=== PATIENT | male | born 1955 | race Caucasian/White ===

== ENCOUNTER 2019-09-14 18:44 | Emergency (ER) | payer OTHER, SELFPAY ==
[2019-09-14 19:01] VITALS: BP 183/114; PULSE 97; RESP 18; TEMP 36.8; O2SAT 96; BMI 37.5
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
--- NOTE | 2019-09-14 19:19 | CTR_ITS ---
PROCEDURE INFORMATION: Exam: CT Head Without Contrast Exam date and time: 09/14/2019 7:29 PM Age: 64 years old Clinical indication: Pain; Headache not specified; Additional info: Worst headache of his life TECHNIQUE: Imaging protocol: Computed tomography of the head without contrast. Total DLP: 917.26 mGy-cm Radiation optimization: All CT scans at this facility use at least one of these dose optimization techniques: automated exposure control; mA and/or kV adjustment per patient size (includes targeted exams where dose is matched to clinical indication); or iterative reconstruction. COMPARISON: No relevant prior studies available. FINDINGS: Brain: Normal. No hemorrhage. Unremarkable white matter. No mass effect. Ventricles: Normal. No ventriculomegaly. Bones/joints: Unremarkable. No acute fracture. Sinuses: Visualized sinuses are unremarkable. No fluid levels. Mastoid air cells: Visualized mastoid air cells are well aerated. Soft tissues: Unremarkable. CT/CT head wo con* [id number] IMPRESSION: No acute intracranial abnormality. Radiation Dose CTDIVOL = (mGy): DLP = 917.26 (mGy-cm)
[2019-09-14 19:38] LABS: Basophils # 0.1 10^3/uL (0.0-0.1); Basophils % 0.5 %; Eosinophils # 0.5 10^3/uL (0.0-0.8); Eosinophils % 4.4 %; Hematocrit 43.4 % (42.0-52.0); Hemoglobin 14.5 g/dL (11.7-16.6); Lymphocytes # 1.3 10^3/uL (0.8-4.8); Lymphocytes % 12.1 %; Mean Corpuscular HGB Conc 33.4 g/dL (30.0-36.0); Mean Corpuscular Hemoglobin 28.7 pg (28.0-34.0); Mean Corpuscular Volume 85.9 fL (80-94); Mean Platelet Volume 10.6 fL (7.4-10.4); Monocytes # 0.8 10^3/uL (0.2-0.9); Monocytes % 7.3 %; Neutrophils # 7.9 10^3/uL (1.8-7.7); Neutrophils % 75.4 %; Nucleated Red Blood Cells % 0 %; Platelet Count 233 10^3/cmm (130-400); Red Blood Count 5.05 10^6/uL (4.1-5.3); Red Cell Distribution Width 13.5 % (12.1-15.1); White Blood Count 10.5 10^3/uL (4.0-10.0)
[2019-09-14] MEDS: ketorolac 30 mg/mL INJ IVP (19:41)
[2019-09-14] MEDS: diphenhydrAMINE 50 mg/mL SDV 1mL 25 MG IVP (19:41)
[2019-09-14 19:52] LABS: INR 0.97 (0.8-1.2)
[2019-09-14 19:56] LABS: Alanine Aminotransferase 24 U/L (0-41); Albumin Level 4.4 g/dL (3.5-5.2); Alkaline Phosphatase 101 IU/L (40-130); Anion Gap 19.8 (5-19); Aspartate Amino Transferase 17 U/L (0-40); Blood Urea Nitrogen 15 mg/dL (8-23); Calcium 10.1 mg/Dl (8.8-10.2); Carbon Dioxide 28 mmol/L (22-29); Chloride 104 mmol/L (98-107); Globulin 3.3 g/dL (1.3-4.6); Glomerular Filtration Rate 67.8 mL/min (90-130); Glucose 314 mg/dL (74-106); Potassium 3.8 mmol/L (3.5-5.1); Sodium 148 mmol/L (136-145); Total Bilirubin 0.3 mg/dL (0.15-1.2); Total Protein 7.7 g/dL (6.6-8.7)
[2019-09-14 20:29] LABS: Influenza A by IFA Negative (Negative); Influenza B by IFA Negative (Negative)
[2019-09-14] MEDS: magnesium sulfate premix 2 GM/50 ML PIGGYBACK IV (20:31)
[2019-09-14] MEDS: dexamethasone 4 mg/mL INJ IVP (20:32)
[2019-09-14 20:35] VITALS: BP 164/94; PULSE 96; RESP 16; O2SAT 96
[2019-09-14] MEDS: valproic acid inj 500 MG in sodium chloride 0.9% 50 ML 55 MG IV (20:56)
[2019-09-14 20:57] VITALS: RESP 18
[2019-09-14] MEDS: morphine 4 mg/mL SDV 1 mL 10 MG IVP (20:57)
[2019-09-14 21:01] VITALS: BP 135/82; PULSE 96; RESP 18
[2019-09-14 23:30] VITALS: BP 175/98; PULSE 85; RESP 16; O2SAT 93
== END 2019-09-14 23:32 | disposition home or self-care (01) ==
PROVIDERS: Emergency Provider Family Medicine; Family Provider Family Medicine
DX: R51 Headache (principal); Z79.82 Long term (current) use of aspirin; Z79.84 Long term (current) use of oral hypoglycemic drugs
CPT/HCPCS: 70450; 80053; 85025; 85610; 87804; 96365; 96366; 96374; 96375; 99283; J1100; J1200; J1885; J2270; J3475

== ENCOUNTER 2020-06-28 09:00 | Outpatient (CLI) | payer OTHER, SELFPAY ==
--- NOTE | 2020-06-28 09:04 | MR_ITS ---
WS: [id number] MRI LEFT SHOULDER HISTORY: LEFT SHOULDER INJURY;JOINT DERANGEMENT COMPARISON: None available. TECHNIQUE: Multiplanar sequences of the shoulder joint are submitted. Moderate to severe AC joint hypertrophy. Soft tissue and bone hypertrophy with encroachment upon the supraspinatus muscle and tendon anteriorly. No AC joint disruption. Small amount of fluid in the suba cromial and subdeltoid bursa. Osteophyte from the undersurface of the distal acromion with significan t encroachment upon the acromial humeral space. There is extensive loss of cartilage surrounding the humeral head and osteophyte formation. Loss of t he normal cartilage with bony hypertrophy. Small amount of marrow edema and subchondral cystic change s along the anterior humeral head. Partial subluxation of the biceps tendon from the bicipital groove . There is a large amount of increased fluid in the proximal biceps tendon sheath. There are small lo ose bodies or osteophytes adjacent to the bicipital groove. Completely torn and retracted supraspinatus tendon. There is severe atrophy with fraying along the di stal tendon to the medial humeral head. Humeral head is high riding. Distal subscapularis tendon is c ompletely torn with a large amount of fluid and edema in the expected location of the tendon. There i s fluid along the distal tendon of the infraspinatus. Insertion site tear of the infraspinatus tendon . Moderate atrophy without edema of the supraspinatus muscle. Moderate amount of fluid surrounding the humeral head and distending the axillary pouch. Humeral head partially subluxed superiorly from the glenoid. Abnormal signal throughout the anterior superior lab rum IMPRESSION: 1. Complete tears with retraction involving the supraspinatus and subscapularis tendons. 2. High riding humeral head with narrowing of the acromiohumeral space. 3. Complete loss of cartilage over the humeral head with hypertrophic osteophytes. 4. Abnormal anterior superior labrum. 5. Dislocated biceps tendon and suspect proximal tendon tear. 6. Moderate to severe degenerative changes at the AC joint. 7. Partial tear insertion site of the infraspinatus tendon.
== END 2020-06-28 09:01 | disposition home or self-care (01) ==
LOC: RADSHAW 09:03
PROVIDERS: PCP Family Medicine; Visit Provider Nurse Practitioner Family
DX: S49.92XA Unspecified injury of left shoulder and upper arm, initial encounter (principal); X58.XXXA Exposure to other specified factors, initial encounter; S46.912A Strain of unspecified muscle, fascia and tendon at shoulder and upper arm level, left arm, initial encounter; M75.122 Complete rotator cuff tear or rupture of left shoulder, not specified as traumatic
CPT/HCPCS: 73221

== ENCOUNTER → 2020-07-09 11:37 | Outpatient (BNVA) | payer OTHER, SELFPAY | PROVIDERS: PCP Family Medicine; Visit Provider Orthopaedic Surgery | DX: Z11.59 Encounter for screening for other viral diseases (principal) | CPT/HCPCS: 87635 ==

== ENCOUNTER → 2020-07-15 13:07 | Outpatient (BNVA) | payer OTHER, SELFPAY | PROVIDERS: PCP Family Medicine; Visit Provider Orthopaedic Surgery | DX: Z11.59 Encounter for screening for other viral diseases (principal); Z01.818 Encounter for other preprocedural examination | CPT/HCPCS: 87635 ==

== ENCOUNTER 2020-07-19 07:23 | Day surgery (SDC) | payer OTHER, SELFPAY ==
[2020-07-14 13:11] VITALS: BMI 37.5
[2020-07-15 05:42] VITALS: PULSE 96; RESP 18; TEMP 36.6; O2SAT 96
[2020-07-15 05:44] VITALS: BP 163/104
[2020-07-15 06:00] LABS: Glucose Point of Care 272 mg/dL (70-110)
[2020-07-15] MEDS: sodium chloride 0.9% 1,000 ML 30 ML IV (06:05)
[2020-07-15] MEDS: midazolam 1 mg/mL INJ 2 mL 2 MG IVP ×2 (06:25→06:32)
[2020-07-15 06:33] VITALS: BP 159/104
[2020-07-15 06:54] LABS: Glucose Point of Care 225 mg/dL (70-110)
[2020-07-15 07:21] VITALS: BP 170/109
--- NOTE | 2020-07-15 07:21 | SUR.PREOP ---
Patient was evaluated by anesthesia after consistent high blood pressures. Bp was taken with a regular adult cuff as well as a long adult cuff on both arms, both legs with automatic cuff as well as manual bp cuff. Patient and his were advised to present to pcp immediately with a print out of bp trends. and to report to ortho clinic to reschedule procedure. patient and state understanding
--- NOTE | 2020-07-15 07:34 | PM.MISC ---
Miscellaneous Note Purpose of Documentation: Hypertensive urgency Note: Patient's BP elevated to systolics > 210 and Diastolics > 110 despite multiple measurements in different extremities. Patient denies having pressures that high at home. When asked how often he checks it at home, he responded, Not that often. In response to the question of how he knows its not normally that high, he says it wasn't that high in the office. Upon reviewing patient's records he had at least one BP of 185/114 with admission to ER in September d/t headache. Patient did seem anxious and versed 2 mg was administered, which brought diastolics down to < 110, but still greater than 100. D/t episode of hypertensive urgency in SDS and poorly controlled HTN in setting of morbidly obese individual, we instructed patient to go straight to primary care doctor with this set of BP readings to adjust his medication. His block will last only 24 hrs and increased post op pain may lead to further elevation of BP. The surgery is time sensitive per surgeon and further delays may lead to poorer outcomes, so it is important to adjust meds quickly. Of note patient blood sugar was also 225.
--- NOTE | 2020-07-15 08:39 | P.ANESASSM_ITS ---
Pre-Anesthetic Assessment Pre-Anesthetic Assessment: Height/Weight: Height 1.91 m Weight 136.078 kg Temp Pulse Resp BP Pulse Ox 97.8 F 96 18 170/109 96 07/15/20 05:42 07/15/20 05:42 07/15/20 05:42 07/15/20 07:21 07/15/20 05:42 Preop Diagnosis: Tear left rotator cuff Proposed Procedure: Operation Date: 07/19/20 07:00 Proposed Procedures p Shoulder Arthroscopy [id number] M75.102(Left) - Brodie Mckeon MD s Rotator Cuff Repair(Left) - Brodie Mckeon MD s subacromial Decompression(Not Applicable) - MD barry Gunn possible Bicep Tenodesis(Not Applicable) - Brodie Mckeon MD Familial anesthetic complications: None Was Beta Erika taken within 24 hours: N/A Last intake: Intake NPO > 8 hrs Last Liquid Date 07/14/20 Last Solid Date 07/14/20 Social: Social History: No alcohol and No tobacco Exam: Pre-Anes Outpt Exam: alert, oriented x 3, clear to auscultation bila terally and regular rate & rhythm Airway: Cervical ROM: WNL MP: 4 Dentition: Full Pulmonary: Pulmonary: Asthma (well controlled) CV/HEM: CV/HEM: HTN Comments: Patient has now been started on amlodipine by his PCP Metabolic: Metabolic: DM, Hyperlipidemia and Morbid obesity Anesthetic Plan: ASA status: 3 Anesthesia: General and Regional (specify below) Risk of > 500 ml blood loss (7ml/kg in children): No Meds/Allergies Current Medications: Current Medications Generic Name Dose Route Start Last Admin Trade Name Freq PRN Reason Stop Dose Admin Sodium Chloride 1,000 mls @ 30 ml s/hr 07/15/20 05:45 07/15/20 06:05 Sodium Chloride 0.9% IV 07/16/20 05:44 30 mls/hr .Q24H BELEN Administration Midazolam HCl 2 mg 07/15/20 05:34 07/15/20 06:32 Midazolam 1 Mg/M l Inj 2 Ml IVP 1 mg Q5M PRN Administration Preop Anxiety PFSH Anesthesia PFSH: Social History Smoking and tobacco status: never smoked Data Anesthesia Other Labs: Laboratory Results - last 48 hr 07/15/20 07/15/20 05:57 06:37 POC Glucose 272 225 Cardiac Studies: No Data to Display
--- NOTE | 2020-07-15 13:31 | SUR.PREOP ---
contacted patient to instruct to get covid swab repeated today so the results will be back by sunday. patient stated he did not agree with having to repeat the covid swab but will do it. Patient asked for time of scheduled surgery for sunday, I told the patient as of now he would be here at 0945 but to keep his phone closed tomorrow evening after 5:00 for us to confirm his time because it may change.
[2020-07-19] VITALS (13 sets, daily range): BP systolic 130–157; BP diastolic 85–106; PULSE 85–92; RESP 16–22; TEMP 36.1–36.8; O2SAT 91–99
[2020-07-19 08:02] LABS: Glucose Point of Care 205 mg/dL (70-110)
[2020-07-19] MEDS: sodium chloride 0.9% 1,000 ML 30 ML IV (08:10)
[2020-07-19] MEDS: labetalol 5 mg/mL SDV 20mL IVP (08:15)
[2020-07-19] MEDS: midazolam 1 mg/mL INJ 5 ML 5 MG IV (08:17)
--- NOTE | 2020-07-19 08:21 | ANES.PROC ---
Anesthesia Procedures Procedure/Date: 07/19/20 Nerve Block ^: Nerve Block 1: Main Anesthesia: general anesthesia Time Out Performed: Yes Consent: requested by attending/covering physician, from patient, from other, risks and benefits reviewed, patient agrees to proceed and emergency procedure Nerve block location: interscalene (L) Anesthesia monitors applied: pulse oximetry, EKG, BP cuff and oxygen Nerve block position: semi sitting Anesthetic Used: ropivicaine 0.5% and with decadron (4 mg) Amount of anesthesia used (mL): 20 Ultrasound used to: recognize landmarks and visualize and ID brachial plexus Nerve Stimulator Used?: No Interscalene/Femoral BLK: 2 stimuplex 22 g needle used for position and inplane approach, visualize local anesthetic spread and no vascular puncture identified Injection: neg aspiration of heme and paresthesia +/- Patient Tolerated Procedure: well and no complications Complications: none
--- NOTE | 2020-07-19 09:36 | W.PM.OPSUD ---
Surgery/Procedure H&P Update DATE OF PROCEDURE: July 19, 2020 DATE H&P PERFORMED: 07/07/20 PREOP DIAGNOSIS: Tear left rotator cuff PLANNED PROCEDURE: Operation Date: 07/15/20 07:00 Proposed Procedures p Shoulder Arthroscopy [id number] M75.102(Left) - MD barry Gunn Rotator Cuff Repair(Left) - MD barry Gunn subacromial Decompression(Not Applicable) - MD barry Gunn possible Bicep Tenodesis(Not Applicable) - Brodie Mckeon MD Operation Date: 07/19/20 09:30 Proposed Procedures p Shoulder Arthroscopy [id number] M75.102(Left) - Brodie Mckeon MD s Rotator Cuff Repair(Left) - MD barry Gunn Subacromial Decompression(Left) - MD barry Gunn possible Bicep Tenodesis(Left) - Brodie Mckeon MD
--- NOTE | 2020-07-19 10:25 | SUR.OPER ---
1024 - Pt's Lissy notified of surgery start via her cell phone.
[2020-07-19 11:31] LABS: Glucose Point of Care 181 mg/dL (70-110)
--- NOTE | 2020-07-19 11:37 | SUR.OPER ---
Eamon - Lissy updated on surgery progress and pt status via her cell phone.
--- NOTE | 2020-07-19 12:30 | P.OP_ITS ---
Operative Report Date of procedure: July 19, 2020 Pre-op Diagnosis: Tear left rotator cuff Post-op diagnosis: same Post-op Findings: Traumatic tear left rotator cuff involving supraspinatus and infraspinatus tendons, impingement Procedure Done: Arthroscopic repair left rotator cuff, arthroscopic left biceps tenodesis, arthroscopic left subacromial decompression Implants: Dietz and Nephew Q fix anchors x2, Dietz and Nephew Helicoil 4.5 mm anchors x2, Dietz [employer] Nephew Helicoil knotless anchors x2 Pathology: none sent Surgeon: Brodie Mckeon Anesthesia: General and Nerve Block (Interscalene block) Estimated blood loss (mL): 25 Complications: None Findings: The patient had a large full-thickness tear of the rotator cuff beginning at the biceps tendon extending posteriorly approximately 3 cm into the infraspinatus tendon. The biceps tendon was exposed and presumably unstable. He had prominent anterior spurring of the acromion. His subscapularis appeared to be intact. Condition: stable Disposition: PACU Brief History: The patient is a 65-year-old male who fell from a ladder resulting shoulder pain and weakness. An MRI revealed a large tear of the rotator cuff. He had significant pain and inability to abduct the arm and surgical repair was chosen to repair the traumatic tear eliminate pain, and restore function Procedure: The patient was given an interscalene block [facility] He was taken to the operating room and given 2 g of Ancef. He was positioned in the lateral position with his left arm in 20 pounds of traction due to its size. He was prepped and draped in the usual fashion. A timeout was performed. An initial posterior portal made with a scalpel blade and a scope cannula and trocar driven into the glenohumeral joint. The very large rotator cuff tear was identified. The humeral head and glenoid were free of chondromalacia. Some degeneration was seen at the biceps attachment but the biceps was seen to be seated in the bicipital groove. The subscapularis appeared to be healthy. The scope was then moved to the subacromial space and anterior lateral working portal fashion. As the biceps was uncovered and potentially unstable decision was made to proceed with a biceps tenodesis. Through the lateral portal the biceps to be elevated out of the proximal bicipital groove. Through the anterior portal a Dietz and Nephew Helicoil anchor was placed in the proximal bicipital groove. A suture was passed around the biceps in a luggage tag fashion and secured drawing the biceps down to debrided bone in the bicipital groove. This was repeated approximately a centimeter proximal again further securing the biceps. Utilizing the Dietz and Nephew Werewolf probe of the proximal biceps was removed extending back to its insertion on the superior labrum. Attention was then focused on the anterior acromion. The werewolf probe was used to outline the acromion. A 5 5 acromionizer was introduced and approximately 6 mm of anterior and inferior acromion removed to make room for the repair. The rotator cuff tear was assessed. It seemed to be a large traumatic tear that fortunately was minimally retracted. The leading edge of the subscapularis appeared healthy. Debridement was accomplished of the bursal tissue allowing visualization down into the infraspinatus posteriorly. Greater tuberosity was debrided to trabecular bone. Through a small posterior lateral portal a Dietz and Nephew Helicoil 4.5 mm anchor was placed. A Dietz and NephGainspeed FirstPass suture passer was used to shuttle each limb of the ultra tape through the posterior cuff approximately centimeter apart and approximately 8 mm from the edge of the tendon. A second helical anchor was placed just posterior to the bicipital groove and the 2 sutures passed in identical fashion. They were secured drawing the medial cuff down to bone with sliding Florian knots and alternating half hitches. Next, through the lateral portal, a Dietz and Nephew Helicoil knotless anchor was a passed with 1 limb from each of the medial row sutures into a posterior lateral position. A second knotless anchor was placed in the anterior lateral position with the remaining 2 sutures. The repair was probed and found to be stable. The shoulder was irrigated with the saline. Portals were closed with 3-0 Prolene. Patient was placed in a sling, extubated, and taken to recovery room in stable condition.
--- NOTE | 2020-07-19 12:33 | SUR.PHASEI ---
PT AWAKES AND ORAL AIRWAY OUT PT QUICKLY BACK TO SLEEP WITH GOOD RESP NOTED VSS LT SHOULDER DRESSING D/I MEDIPORE TAPE TO OUTER SOFT DRESSING, SLING IN PLACE. DISTAL LT HAND PINK WARM WITH CAP REFILL LESS THAN 3 SECONDS. VSS.
--- NOTE | 2020-07-19 12:42 | SUR.PHASEI ---
PT AWAKE NOW ON RA TRIAL.
[2020-07-19] MEDS: oxyCODONE 5 mg IR Tab/Cap PO (13:58)
--- NOTE | 2020-07-19 14:40 | ANE.PACU2 ---
Inpatient post-anesthesia follow up: Airway intact: Yes Vital signs: Temperature 97 F Pulse Rate 90 Respiratory Rate 18 Blood Pressure 150/91 Pulse Oximetry 91 Oxygen Delivery Me thod Room Air Oxygen Flow Rate 8 Fraction of Inspir ed Oxygen Hydration adequate: Yes Nausea and vomiting: No Pain level: 3 Mental status: Baseline
== END 2020-07-19 14:40 | disposition home or self-care (01) ==
PROVIDERS: PCP Family Medicine; Visit Provider Orthopaedic Surgery
PROC: (CPT 29805; principal; 2020-07-15 13:00)
PROC: (CPT 29826; 2020-07-15 13:00)
PROC: (CPT 29826; 2020-07-15 13:00)
PROC: (CPT 23430; 2020-07-15 13:00)
DX: S46.012A Strain of muscle(s) and tendon(s) of the rotator cuff of left shoulder, initial encounter (principal); W11.XXXA Fall on and from ladder, initial encounter; M25.812 Other specified joint disorders, left shoulder; J45.909 Unspecified asthma, uncomplicated; I10 Essential (primary) hypertension; E11.9 Type 2 diabetes mellitus without complications; E78.5 Hyperlipidemia, unspecified; E66.01 Morbid (severe) obesity due to excess calories; Z68.37 Body mass index [BMI] 37.0-37.9, adult; Z79.82 Long term (current) use of aspirin; Z79.84 Long term (current) use of oral hypoglycemic drugs
CPT/HCPCS: 29826; 29827; 29828; 12345; 36416; 64415; 76942; 82962; 96374; 96375; C1713; J0330; J0690; J1100; J2250; J2370; J2405; J2704; J2710; J2795; J3010; J3490; J7030

== ENCOUNTER 2021-03-31 19:10 | Emergency (ER) | payer OTHER, SELFPAY ==
--- NOTE | 2021-03-31 19:39 | XRR_ITS ---
PROCEDURE INFORMATION: Exam: XR Chest Exam date and time: 03/31/2021 7:39 PM Age: 66 years old Clinical indication: Cough and fever and shortness of breath; Prior surgery; Surgery type: Cardiac stents; Patient HX: Cough/sob/fever. TECHNIQUE: Imaging protocol: XR of the chest. Views: 1 view. COMPARISON: CR Chest 2 views* [id number] 10/23/2018 6:29 PM FINDINGS: Lungs: Unremarkable. No consolidation. Pleural spaces: Unremarkable. No pleural effusion. No pneumothorax. Heart/Mediastinum: Unremarkable. No cardiomegaly. Bones/joints: No acute fracture. XR/XR chest 1V portable [id number] IMPRESSION: No acute findings.
[2021-03-31 19:42] VITALS: BMI 38.1
[2021-04-01 00:41] VITALS: BP 145/82; PULSE 63; RESP 22; O2SAT 96
[2021-04-01 01:13] LABS: SARS Covid-2 Antigen Positive (Negative)
--- NOTE | 2021-04-01 02:01 | W.ED.SOB ---
HPI - SOB/Dyspnea General: Chief Complaint: Shortness of Breath/Dyspnea Stated Complaint: COUGH, SOB, MUSCLE ACHES Time Seen by Provider: 04/01/21 01:50 Source: patient Mode of arrival: ambulatory Limitations: no limitations History of Present Illness: HPI Narrative: 66-year-old male who states that over the last 4 days has had cough congestion low-grade fevers and body aches. He states that his dyspnea is increased today. Here he is in no distress and able to speak full sentences and is 95% on room air. Patient did not receive his vaccine. He denies any known sick contacts. Denies any vomiting or diarrhea. Denies chest pain. Associated symptoms: Reports fever(s); Deny abdominal pain, chest pain, nausea or vomiting Review of Systems Const: Reports: fever(s), chills and body aches Eyes: Denies: blurry vision or eye discomfort ENMT: Denies: throat pain or dental pain Card: Denies: chest pain Resp: Reports: dyspnea and non-productive cough GI: Denies: abdominal pain, nausea, vomiting or diarrhea : Denies: dysuria Musc: Denies: neck pain or back pain Skin/Breast: Denies: rash Neuro: Denies: headache(s) Psych: Denies: depression Javier/Lymph: Denies: easy bruising All/Imm: Denies: urticaria PFSH ED PFSH: Social History Smoking and tobacco status: never smoked Physical Exam Const: COMMON NORMALS: no acute distress, patient oriented x3 and healthy appearing HENMT: COMMON NORMALS: normocephalic and atraumatic HEAD & SCALP: normocephalic and atraumatic Eye: COMMON NORMALS: Equal, round and reactive pupils present and EOMs intact bilaterally PUPIL: Yes Equal, round and reactive pupils present Neck/C-Spine: COMMON NORMALS: full ROM and supple Chest: COMMONS NORMALS: normal inspection of the chest and normal palpation of entire chest wall Resp: COMMON NORMALS: normal respiratory effort, No retractions, No use of accessory muscles and clear to auscultation bilaterally AUSCULTATION: clear to auscultation bilaterally Cardio: COMMON NORMALS: regular rate, regular rhythm and No murmurs present (Cardio) RATE: regular rate RHYTHM: regular rhythm GI: COMMON NORMALS: Normal to inspection, nondistended, normoactive bowel sounds present, Soft to palpation, non-tender and no masses PALPATION: Yes Soft to palpation Extremity: COMMON NORMALS: normal to inspection and full ROM Neuro: COMMON NORMALS: patient oriented x3, moves all extremities and no focal motor deficits Psych: COMMON NORMALS: mental status grossly normal, Normal thought process present and cooperative THOUGHT PROCESS: Normal thought process present Skin: COMMON NORMALS: no rashes or lesions noted and no wounds GENERAL SKIN EXAM: no rashes or lesions noted Course Vital Signs: Vital signs: Vital Signs Pulse Rate 63 04/01/21 00:41 Respiratory Rate 22 H 04/01/21 00:41 Blood Pressure 145/82 04/01/21 00:41 Pulse Oximetry 96 04/01/21 00:41 MDM - SOB/Dyspnea MDM Narrative: Medical decision making narrative: Patient presents here with COVID-19. His x-ray here is clear and he is not requiring any oxygen. Will prescribe him steroids and albuterol inhaler for home. I spoke to him about monoclonal antibody infusion he is a candidate he would like to get it. I placed an outpatient order will have case management set up his monoclonal antibody infusion. Lab Data: Labs: Lab Results 04/01/21 Range/Units 00:43 SARS-CoV-2 Ag (Rap id) Positive H (Negative) Imaging Data^: CXR: Attestation: I personally reviewed and interpreted this imaging study as follows: My impression: No acute abnormality. Discharge Plan Discharge Patient Disposition: Home Clinical Impression: COVID-19 Condition: Stable Prescriptions: New albuterol sulfate 90 mcg/actuation HFA aerosol inhaler 2 inh INHALATION Q6H PRN (Reason: shortness of breath or wheezing) Qty: 8 RF: 0 Medrol (Santana) 4 mg tablets,dose pack See Rx Instructions .ROUTE .COMPLEX Qty: 21 RF: 0 No Action atorvastatin [Lipitor] 20 mg tablet 20 mg PO DAILY RF: 0 aspirin 325 mg tablet 325 mg PO DAILY RF: 0 glipizide 10 mg tablet extended release 24hr 10 mg PO DAILY RF: 0 metformin 1,000 mg Tablet 1,000 mg PO BID RF: 0 hydrochlorothiazide 25 mg tablet 25 mg PO DAILY RF: 0 albuterol sulfate [Ventolin HFA] 90 mcg/actuation HFA aerosol inhaler 2 puff INHALATION Q4H PRN (Reason: Shortness Of Breath) RF: 0 Januvia 100 mg tablet 100 mg PO DAILY RF: 0 lisinopril 40 mg tablet 40 mg PO BID RF: 0 amlodipine 5 mg Tablet 5 mg PO DAILY RF: 0 oxycodone 5 mg tablet 5 mg PO Q4H PRN (Reason: pain) Qty: 40 RF: 0 Discharge Orders: Discharge ED (Routine); Ordered 04/01/21 Ordered By: Tami Odom Referrals: Ramonita Spangler MD [Primary Care Provider] - 1-3 days Discharge Diet: Advance as tolerated Discharge Activity: Resume usual activity Patient Instructions: Viral Syndrome (ED) Coding Level of Care Code ED Hospital Admissions Clerk for [facility] Fwd Exam Comprehensive
[2021-04-01 05:08] VITALS: BP 140/74; PULSE 80; RESP 18; TEMP 36.6; O2SAT 98
--- NOTE | 2021-04-04 14:03 | DCPLANNER ---
flight reservations manager had message to order an outpatient monoclonal antibody infusion. flight reservations manager faxed order to centralized scheduling, briefcase sewer spoke with Eneida and confirmed that order was received.
== END 2021-04-01 05:12 | disposition home or self-care (01) ==
PROVIDERS: Emergency Provider Emergency Medicine; PCP Family Medicine
DX: U07.1 COVID-19 (principal)
CPT/HCPCS: 71045; 87426; 96365; 99283

== ENCOUNTER 2022-03-23 08:39 | Outpatient (CLI) | payer OTHER, MEDICARE, SELFPAY ==
--- NOTE | 2022-03-23 08:53 | XR_ITS ---
WS: [id number] XR cervical spine 3V* [id number] REASON FOR EXAM: R NECK PAIN FINDINGS: Straightening of the normal lordosis of the cervical spine. No significant compression deformity or focal lesion of the cervical vertebrae. Moderate mild narrowing of the C4-C5 disc space. Moderate narrowing of the C5-6 and C6 disc spaces. Large anterior osteophytes C3-C7. Uncinate osteophytes, moderate, C3-C7. No significant listhesis. Normal facet joint alignment. XR/XR cervical spine 3V* [id number] IMPRESSION: Degenerative spondylosis in the cervical spine as above.
--- NOTE | 2022-03-23 08:53 | XR_ITS ---
WS: [id number] XR shoulder RT min 2V* [id number] REASON FOR EXAM: PAIN IN R SHOULDER FINDINGS: No fracture or focal bone lesion. Significant narrowing of the acromioclavicular joint with marginal subchondral sclerosis and osteophy tosis. Moderate narrowing of the glenohumeral joint with subchondral sclerosis and small osteophytosis of th e glenoid and humeral head. Significant subchondral sclerosis and cystic change in the greater tuberosity of the humeral head. No soft tissue abnormality. 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 Significant rotator cuff tendon arthropathy.
== END 2022-03-23 08:40 | disposition home or self-care (01) ==
PROVIDERS: PCP Internal Medicine; Visit Provider Nurse Practitioner Family
DX: M19.011 Primary osteoarthritis, right shoulder (principal); M47.812 Spondylosis without myelopathy or radiculopathy, cervical region
CPT/HCPCS: 72040; 73030

== ENCOUNTER 2022-06-15 12:15 | Observation (INO) | payer OTHER, MEDICARE, SELFPAY ==
[2022-06-14 12:36] VITALS: BMI 37.5
[2022-06-15] VITALS (50 sets, daily range): BP systolic 109–161; BP diastolic 67–101; PULSE 68–105; RESP 12–22; TEMP 36.1–36.6; O2SAT 94–100
[2022-06-15 06:22] LABS: Glucose Point of Care 248 mg/dL (70-110)
[2022-06-15] MEDS: sodium chloride 0.9% 1,000 ML 30 ML IV (06:32)
[2022-06-15 06:48] LABS: Basophils # 0.1 10^3/uL (0.0-0.1); Basophils % 1.1 %; Eosinophils # 0.8 10^3/uL (0.0-0.8); Eosinophils % 12.3 %; Hemoglobin 13.4 g/dL (11.7-16.6); Lymphocytes # 1.5 10^3/uL (0.8-4.8); Lymphocytes % 23.9 %; Mean Corpuscular HGB Conc 35.3 g/dL (30.0-36.0); Mean Corpuscular Volume 85.2 fl (80-94); Mean Platelet Volume 10.6 fL (7.4-10.4); Monocytes # 0.7 10^3/uL (0.2-0.9); Monocytes % 10.2 %; Neutrophils # 3.33 10^3/uL (1.8-7.7); Nucleated Red Blood Cells % 0 %; Platelet Count 217 10^3/cmm (130-400); Red Blood Count 4.46 10^6/uL (4.1-5.3); Red Cell Distribution Width 13.7 % (12.1-15.1); White Blood Count 6.4 10^3/uL (4.0-10.0)
--- NOTE | 2022-06-15 06:53 | W.PM.OPSUD ---
Surgery/Procedure H&P Update DATE OF PROCEDURE: June 15, 2022 DATE H&P PERFORMED: 05/26/22 H&P UPDATE INFORMATION: I have reviewed H&P completed within last 30 days PREOP DIAGNOSIS: Rotator cuff tear right shoulder PLANNED PROCEDURE: Operation Date: 06/15/22 07:00 Proposed Procedures p right rotator cuff repair:63661/right bicep tenodesis:61564,S46.111A,M75.101(Right) - Brodie Mckeon MD s Bicep Tenodesis(Right) - Brodie Mckeon MD s Shoulder Arthroscopy(Right) - Brodie Mckeon MD
--- NOTE | 2022-06-15 06:56 | P.ANESASSM_ITS ---
Pre-Anesthetic Assessment Height/Weight: Height 1.91 m Weight 136.078 kg Temp Pulse Resp BP Pulse Ox O2 Del Method 97.6 F 93 18 129/83 96 06/15/22 06:03 06/15/22 06:03 06/15/22 06:03 06/15/22 06:03 06/15/22 06:03 06/15/22 06:13 Preop Diagnosis: Rotator cuff tear right shoulder Operation Date: 06/15/22 07:00 Proposed Procedures p right rotator cuff repair:89832/right bicep tenodesis:33801,S46.111A,M75.101(R ight) - Brodie Mckeon MD s Bicep Tenodesis(Right) - Brodie Mckeon MD s Shoulder Arthroscopy(Right) - Brodie Mckeon MD Familial anesthetic complications: None Was Beta Erika taken within 24 hours: N/A Was Clonidine taken within 24 hours: N/A Last intake: Intake Last Liquid Date 06/14/22 Last Liquid Time 22:00 Last Solid Date 06/14/22 Last Solid Time 22:00 Social No alcohol and No tobacco Exam alert, oriented x 3, clear to auscultation bilaterally and regular rate & rhythm Airway Mallampati: Class IV Dentition: full Pulmonary Asthma CV/HEM Hypertension Metabolic Diabetes Mellitus, Hyperlipidemia and Morbid Obesity Anesthetic Plan ASA status: 3 Anesthesia: General and Regional (specify below) Risk of > 500 ml blood loss (7ml/kg in children): No Medications/Allergies Home Medications Medication Instructions Recorded Confirmed Last Taken Type albuterol sulfate 90 mcg/actuation 2 puff inhalation Q4H PRN 09/14/19 06/15/22 06/15/22 History aerosol inhaler (Ventolin HFA) Shortness Of Breath aspirin 325 mg tablet 325 mg PO DAILY 09/14/19 06/15/22 06/14/22 History atorvastatin 20 mg tablet (Lipitor) 20 mg PO DAILY 09/14/19 06/15/22 06/14/22 History glipizide 10 mg tablet, extended 10 mg PO DAILY 09/14/19 06/14/22 06/14/22 History release 24 hr hydrochlorothiazide 25 mg tablet 25 mg PO DAILY 09/14/19 06/14/22 06/14/22 History metformin 1,000 mg tablet 1,000 mg PO BID 09/14/19 06/14/22 06/14/22 History lisinopril 40 mg tablet 40 mg PO BID 07/14/20 06/14/22 06/14/22 History sitagliptin 100 mg tablet (Januvia) 100 mg PO DAILY 07/14/20 06/14/22 06/14/22 History amlodipine 5 mg tablet 5 mg PO DAILY 07/19/20 06/15/22 06/15/22 History oxycodone 5 mg tablet 5 mg PO Q4H PRN pain #40 tabs 07/19/20 06/14/22 Unknown Rx tamsulosin 0.4 mg capsule 0.4 mg PO DAILY 06/14/22 06/14/22 06/14/22 History Allergies Allergy/AdvReac Type Severity Reaction Status Date / Time No Known Allergies Allergy Verified 05/26/22 10:44 Current Medications Generic Name Dose Route Start Last Admin Trade Name Freq PRN Reason Stop Dose Admin Sodium Chloride 1,000 mls @ 30 mls/hr 06/15/22 06:15 06/15/22 06:32 Sodium Chloride 0.9% IV 06/16/22 06:14 30 mls/hr .Q24H BELEN Administration PFSH Anesthesia Social History Smoking and tobacco status: never smoked Data Anesthesia : 06/15/22 06:40 06/15/22 06:40 Short CBC 06/15/22 Range/Units 06:40 WBC 6.4 (4.0-10.0) 10^3/uL Hgb 13.4 (11.7-16.6) g/dL Hct 38.0 L (42.0-52.0) % MCV 85.2 (80-94) fl Plt Count 217 (130-400) 10^3/cmm Neut % (Auto) 52.0 % Neut # (Auto) 3.33 (1.8-7.7) 10^3/uL Cardiac Studies: No Data to Display
--- NOTE | 2022-06-15 06:56 | ANES.PROC ---
Anesthesia Procedures Procedure/Date: 06/15/22 Nerve Block ^: Nerve Block 1: Main Anesthesia: general anesthesia Time Out Performed: Yes Consent: requested by attending/covering physician, from patient, risks and benefits reviewed and patient agrees to proceed Anesthesia monitors applied: pulse oximetry, EKG and BP cuff Nerve block position: semi sitting Anesthetic Used: ropivicaine 0.5% (20 ml) and with decadron (4 mg) Ultrasound used to: recognize landmarks, visualize and ID brachial plexus and visualize and ID interscalene groove Nerve Stimulator Used?: No Interscalene/Femoral BLK: 2 stimuplex 22 g needle used for position and inplane approach, visualize local anesthetic spread and no vascular puncture identified Injection: neg aspiration of heme Patient Tolerated Procedure: well and no complications
[2022-06-15] MEDS: ceFAZolin 2,000 MG in sodium chloride 0.9% (plus) 50 ML 100 MG IV (07:00)
[2022-06-15 07:08] LABS: Anion Gap 12.6 (5-19); Blood Urea Nitrogen 12 mg/dL (8-23); Calcium 9.3 mg/dL (8.5-10.5); Carbon Dioxide 29 mmol/L (22-29); Chloride 98 mmol/L (98-107); Glucose 249 mg/dL (65-115); Osmolality Calculated 290 mOsm/kg (285-295); Potassium 3.6 mmol/L (3.5-5.1); Sodium 136 mmol/L (136-145)
--- NOTE | 2022-06-15 07:48 | SUR.OPER ---
Called and notified her of surgical start
--- NOTE | 2022-06-15 09:38 | PM.OP ---
Operative Report Date of procedure: June 15, 2022 Pre-op diagnosis: Preop Diagnosis Rotator cuff tear right shoulder, tear right biceps Post-op diagnosis: same Procedure done: Arthroscopic repair right rotator cuff, arthroscopic right subacromial decompression, arthroscopic assisted open biceps tenodesis. Implants: Dietz and Nephew Helicoil 4.5 mm anchors x2, Dietz and Nephew Multifix 5.5 mm anchor x1, Dietz and Nephew Q fix anchors x2 Pathology: none sent Surgeon: Brodie Mckeon Anesthesia: General and Nerve Block (Interscalene block) Estimated blood loss (mL): 50 Findings: The patient had a full-thickness tear of his supraspinatus with minimal retraction approximately 2 cm from anterior to posterior with a centimeter of retraction. Tendon quality was good. He had anterior spurring of his acromion. He had minimal chondromalacia of the glenohumeral joint. He had partial tearing of his biceps as a insertion on the superior labrum with a cord degenerative appearance to the biceps tendon generalized in the glenohumeral Condition: stable Disposition: PACU Procedure: The patient was taken to the operating room after he was given interscalene block. He was given 2 g of Ancef and a general anesthesia. He was positioned, prepped, and draped in the lateral position with his right arm in 15 pounds of traction. A timeout was performed. The shoulder was entered through a posterior portal 2 cm inferior medial to the posterior corner of acromion. An anterior working portal was made in the rotator interval. A detailed glenohumeral arthroscopy was performed. Essentially no significant glenohumeral degenerative changes were noted. He had a very poor degenerative appearing biceps tendon in the joint with a degenerative attachment. The Dietz and Nephew Werewolf probe was used to release the biceps from the superior labrum. Really no significant chondromalacia or was identified to benefit from debridement. There was some degeneration of the labrum posteriorly and inferiorly that was lightly debrided back with the Dietz and Nephew Werewolf probe. Arthroscopy equipment was then moved to the subacromial space and the lateral working portal was fashioned. Abundant bursitis and adhesions between the bursal cuff and acromion were identified. These were released with the Dietz and Nephew Werewolf probe. This revealed a minimally retracted tear approximately 2 cm from anterior to posterior with a centimeter tendinous retraction in the supraspinatus tendon. Spurring was identified in the leading edge of the acromion that was thought to possibly impinge on the repair. A 5.5 mm acromionizer was introduced to the lateral portal and approximately 4 mm of anterior and inferior acromion removed. Attention was then focused on the rotator cuff. The tuberosity was debrided with the acromionizer. Through a small lateral stab wound a Dietz and Nephew Helicoil 4.5 mm anchor was placed in the anterior medial debrided tuberosity. The Dietz and Nephew FirstPass suture passer was used to remove treated each limb of tape through the cuff at a point approximately 8 mm from the tendinous edge, with the sutures approximately 5 mm apart. This was repeated with a second anchor in the posterior medial footprint. Anchors from both sutures were secured with a sliding Florian knot in a single alternating half hitch. Next just lateral to the tuberosity a Dietz and Nephew Multifix anchor was placed and the Free sutures passed into that anchor. This through the lateral cuff down to bone. Next a 3 cm long incision was made over the anterior axillary fold. Dissection was carried down bluntly to the bicipital groove. The biceps tendon was pulled into the wound. 2Q fix anchors were then placed into to the bicipital groove just distal to the pectoralis major insertion. The sutures were passed around the biceps in a luggage tag fashion and the biceps was tightly secured down to the anterior humerus. The T-Note's Omi's incision was irrigated with saline. Deep tissues were closed with 2-0 Vicryl and the skin was closed with interrupted 3-0 Prolene. Arthroscopy portals were closed with 3-0 Prolene. Sterile dressings were applied. The patient was placed in a sling, extubated, and taken to recovery room in stable condition.
--- NOTE | 2022-06-15 10:18 | XRR_ITS ---
PROCEDURE INFORMATION: Exam: XR Chest Exam date and time: 06/15/2022 10:39 AM Age: 67 years old Clinical indication: Shortness of breath; Additional info: Difficulty breathing TECHNIQUE: Imaging protocol: Radiologic exam of the chest. Views: 1 view. COMPARISON: CR XR chest 1V portable [id number] 04/01/2021 1:52 AM FINDINGS: Lungs: Clear lungs. Pleural spaces: Unremarkable. No pleural effusion. No pneumothorax. Heart/Mediastinum: Cardiomegaly. Diaphragm: Elevated right hemidiaphragm. Bones/joints: Unremarkable. XR/XR chest 1V portable [id number] IMPRESSION: No acute findings.
[2022-06-15] MEDS: ipratropium-albuterol 3 mL Neb INHALATION (10:33)
--- NOTE | 2022-06-15 11:43 | PM.HP ---
Providers/Chief Complaint Admitting Physician: Anam Spangler MD Primary Care Provider: Mary Grace Corrales MD Chief Complaint: stridor History of Present Illness Karan Mane is a 67 year old male who underwent an arthroscopic right shoulder surgery this morning per orthopedics. He received general anesthesia as well as a interscalene nerve block. During the recovery period stridor was noted, and he complained of shortness of breath. According to his , there is some history of angioedema in the past for which he is being worked up for alpha gal and trying to not eat any mammalian meat. He did receive dexamethasone, 8 mg following surgery. No recent fever, cough. He does have history of asthma, following COVID he had in the last several years. Review of Systems General: Reports: 10 or more systems reviewed and unremarkable except in HPI and below Const: Denies: fever(s) or chills Eyes: Denies: change in vision ENMT: Denies: throat pain Card: Denies: chest pain Resp: Reports: dyspnea GI: Denies: abdominal pain, nausea or vomiting : Denies: flank pain Musc: Denies: neck pain Skin/Breast: Denies: rash Neuro: Denies: headache(s) Psych: Denies: anxiety or depression Endo: Denies: polyuria Javier/Lymph: Denies: easy bruising All/Imm: Reports: urticaria, throat swelling and tongue swelling (In the past, with diagnosis of angioedema.) Medications/Allergies Home Medications Medication Instructions Recorded Confirmed Last Taken Type albuterol sulfate 90 mcg/actuation 2 puff inhalation Q4H PRN 09/14/19 06/15/22 06/15/22 History aerosol inhaler (Ventolin HFA) Shortness Of Breath aspirin 325 mg tablet 325 mg PO DAILY 09/14/19 06/15/22 06/14/22 History atorvastatin 20 mg tablet (Lipitor) 20 mg PO DAILY 09/14/19 06/15/22 06/14/22 History glipizide 10 mg tablet, extended 10 mg PO DAILY 09/14/19 06/14/22 06/14/22 History release 24 hr hydrochlorothiazide 25 mg tablet 25 mg PO DAILY 09/14/19 06/14/22 06/14/22 History metformin 1,000 mg tablet 1,000 mg PO BID 09/14/19 06/14/22 06/14/22 History lisinopril 40 mg tablet 40 mg PO BID 07/14/20 06/14/22 06/14/22 History sitagliptin 100 mg tablet (Januvia) 100 mg PO DAILY 07/14/20 06/14/22 06/14/22 History amlodipine 5 mg tablet 5 mg PO DAILY 07/19/20 06/15/22 06/15/22 History oxycodone 5 mg tablet 5 mg PO Q4H PRN pain #40 tabs 07/19/20 06/14/22 Unknown Rx tamsulosin 0.4 mg capsule 0.4 mg PO DAILY 06/14/22 06/14/22 06/14/22 History oxycodone 5 mg tablet 5 mg PO Q4H PRN pain #40 tabs 06/15/22 Unknown Rx Allergies Allergy/AdvReac Type Severity Reaction Status Date / Time No Known Allergies Allergy Verified 05/26/22 10:44 PFSH Acute PFSH: Medical History (Updated 06/15/22 @ 12:01 by Anam Spangler MD) Angioedema Asthma Coronary artery disease Diabetes mellitus Hyperlipidemia Hypertension Obesity Obstructive sleep apnea Surgical History (Updated 06/15/22 @ 11:52 by Anam Spangler MD) History of appendectomy History of cholecystectomy History of coronary artery stent placement History of knee surgery Family History (Updated 06/15/22 @ 11:52 by Aanm Spangler MD) Other CAD (coronary artery disease) Cancer Diabetes Social History (Updated 06/15/22 @ 11:52 by Anam Spangler MD) Smoking and tobacco status: never smoked Alcohol intake: never Vitals/I&O/Wt Last Vital Signs Temp 97.0 F L 06/15/22 09:41 Pulse 91 06/15/22 11:20 Resp 18 06/15/22 11:20 BP 123/84 06/15/22 11:20 Pulse Ox 100 06/15/22 11:20 O2 Del Method 06/15/22 11:20 O2 Flow Rate 3 06/15/22 11:20 06/14/22 06/15/22 06/15/22 22:59 06:59 14:59 Intake Total 1850 / 1850 Output Total 50 / 50 Balance 1800 / 1800 Weight last 48 hrs Weight 136.078 kg Physical Exam Narrative: General exam is a white male, sitting up in bed, occasional stridor when he gets upset. HEENT: Atraumatic and normocephalic. Pupils equally round. Oropharynx clear. No lip edema Neck is supple no lymphadenopathy thyromegaly Cardiovascular regular rate and rhythm without murmur, no S3 or S4 Lungs clear no wheezing or crackles Abdomen soft nontender positive bowel sounds. Obese. No obvious organomegaly exams deferred Extremities no cyanosis clubbing or edema, cap refill brisk Skin no rash Neuro, opens eyes, follows commands Data : 06/15/22 06:40 06/15/22 06:40 Other Labs: Chest x-ray demonstrates some right hemidiaphragm elevation, no infiltrate A&P Assessment and plan (1) Stridor: Patient with stridor following the procedure. I discussed with anesthesia that although rare of this could potentially be vocal cord paralysis following a nerve block. He was intubated as well and this could lead to airway irritation. Right hemidiaphragm could also be affected by phrenic nerve. This could all be complicated by the patient's obstructive sleep apnea. He also has a history of angioedema, and though I do not see any lip swelling or tongue swelling must also keep this in mind. He appropriately got dexamethasone already IV, 8 mg. If he has recurrent episodes, will initiate racemic epinephrine. Pepcid IV has been given and will continue. Consider IV Benadryl for any recurrence For severe worsening consider subcutaneous epinephrine If evidence of angioedema, would consider FFP Close observation in the ICU. If this he awakens more symptoms go completely away at 5-6 tonight could consider discharge. Otherwise he will be observed at least until tomorrow. N.p.o. for now Continue hydration If any worsening, does not spontaneously resolve consider ENT evaluation (2) Angioedema: Past history of angioedema, currently under work-up Avoid all NIYAH inhibitor's currently (3) Asthma: No evidence of acute exacerbation. DuoNeb as needed. (4) Diabetes mellitus: Sliding scale insulin Plan Multiple other medical problems as outlined in past medical history Full code SCDs for DVT prophylaxis currently as directly postoperative. Attestations Medical Necessity Statement*: Will require less than 2 midnight stay for evaluation and treatment of stridor Coding Level of Care Code Acute Transport Engineer for [facility] [place] Diagnoses Stridor R06.1 Angioedema T78.3XXA Asthma J45.909 Diabetes mellitus E11.9
[2022-06-15 12:18] LABS: Glucose Point of Care 373 mg/dL (70-110)
[2022-06-15] MEDS: famotidine 20 mg/2 mL INJ IVP ×2 (12:44→23:37)
[2022-06-15] MEDS: sodium chloride 0.9% 1,000 ML 50 ML IV (12:44)
[2022-06-15] MEDS: insulin lispro 100 unit/1 mL SUBCUT ×3 (12:44→20:55)
--- NOTE | 2022-06-15 13:00 | PC.NURSE ---
Pt was admitted to ICU via bed at arouns 1200. Pt was on nasal canula and was only responding to painful stimuli. Dr. Spangler and other staff at bedside.
[2022-06-15] MEDS: racepinephrine 0.5 mL Neb INHALATION (13:25)
[2022-06-15] MEDS: dexamethasone 10 mg/mL INJ IVP (13:33)
[2022-06-15] MEDS: diphenhydrAMINE 50 mg/mL SDV 1mL 25 MG IVP (13:34)
--- NOTE | 2022-06-15 13:55 | ANE.PACU2 ---
Inpatient post-anesthesia follow up: Airway intact: Yes Vital signs: Temperature 97.0 F Pulse Rate 102 Respiratory Rate 16 Blood Pressure 147/89 Pulse Oximetry 99 Oxygen Delivery Me thod Room Air Oxygen Flow Rate 2 Fraction of Inspir ed Oxygen Hydration adequate: Yes Nausea and vomiting: No Pain level: 1 Mental status: Baseline Additional Comments: Patient having shortness of breath with some transient episodes of upper airway/pharyngeal stridor with abdominal retractions. Albuterol treatment given to help withy asthmatic component. Improvement with upright positioning. CXR reveals R hemidiphragmatic elevation and no PTX. Shortness of breath is most probably due to phrenic paralysis, but tracking of the local anesthetic to recurrent or superior laryngeal nerves can't be ruled out. Due to transient episodes of significant dyspnea, will admit to ICU for further monitoring.
--- NOTE | 2022-06-15 14:35 | ECG_ITS ---
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 Measurements Intervals [place] Rate: 98 P: 25 [place]: 168 QRS: -14 QRSD: 99 T: 39 QT: 370 QTc: 474 Interpretive Statements SINUS RHYTHM NONSPECIFIC T-WAVE ABNORMALITY No previous ECG available for comparison Electronically Signed On 06-15-2022 21:09:44 CDT by Marlene Galloway M.D. [id number]
[2022-06-15] MEDS: oxyCODONE 5 mg IR Tab/Cap PO ×3 (15:43→23:36)
--- NOTE | 2022-06-15 16:10 | PC.NURSE ---
Small amount of drainage noted to right shoulder bandages. Has been marked.
[2022-06-15 20:49] LABS: Glucose Point of Care 303 mg/dL (70-110)
[2022-06-16] VITALS (16 sets, daily range): BP systolic 123–159; BP diastolic 71–96; PULSE 75–94; RESP 14–22; TEMP 36.7; O2SAT 97–100
[2022-06-16] MEDS: oxyCODONE 5 mg IR Tab/Cap PO (03:32)
[2022-06-16] MEDS: acetaminophen 325 mg Tablet 650 MG PO (04:33)
--- NOTE | 2022-06-16 07:03 | P.DS_ITS ---
Discharge Providers Date of Admission: 06/15/22 12:15 Date of Discharge: June 16, 2022 Attending Provider at Admission: Brodie Mckeon MD Attending Provider at Discharge: Anam Spangler MD Primary Care Provider: Mary Grace Corrales MD Diagnoses at Discharge Discharge Diagnosis (1) Stridor: Status: Acute (2) Angioedema: Status: Acute (3) Asthma: Status: Acute (4) Diabetes mellitus: Status: Acute Reason for Visit Reason for Visit: stridor Hospital Course Hospital Course Mr. Mane presented to the hospital for rotator cuff repair. Following surgery he was complaining of shortness of breath, noted to have stridor. There was concern he might need reintubated. No tongue swelling or lip swelling was noted. Anesthesia evaluated him, and recommended close monitoring in the ICU. He had recurrence of symptoms in the ICU and received racemic epinephrine, IV steroids, IV Benadryl, and was closely monitored. He had no recurrence that night, and the following day was feeling normal. He was discharged home. Secondary to past history of angioedema, NIYAH inhibitor was discontinued. He did not have evidence of angioedema on clinical exam. Loratadine was added to his regimen but he was taking this intermittently at home prior as well. He will follow-up with his primary care provider in 5 to 7 days, orthopedics per their instructions. Physical Exam Narrative: General exam no distress HEENT: No evidence of tongue or lip swelling. Neck is supple no lymphadenopathy thyromegaly Cardiovascular regular in rhythm without murmur Lungs clear no wheezing or crackles Abdomen is soft nontender positive bowel sounds Extremities no cyanosis clubbing or edema Discharge Data Studies Completed and Pending Completed Studies During Hospitalization Category Date Time Status XR chest 1V portable [id number] Stat Exams 06/15/22 10:18 Completed Radiology Impressions Chest X-Ray 06/15/22 10:18 IMPRESSION: No acute findings. Laboratory Results WBC 6.4 10^3/uL (4.0-10.0) 06/15/22 06:40 RBC 4.46 10^6/uL (4.1-5.3) 06/15/22 06:40 Hgb 13.4 g/dL (11.7-16.6) 06/15/22 06:40 Hct 38.0 % (42.0-52.0) L 06/15/22 06:40 MCV 85.2 fl (80-94) 06/15/22 06:40 MCH 30.0 pg (28.0-34.0) 06/15/22 06:40 MCHC 35.3 g/dL (30.0-36.0) 06/15/22 06:40 RDW 13.7 % (12.1-15.1) 06/15/22 06:40 Plt Count 217 10^3/cmm (130-400) 06/15/22 06:40 MPV 10.6 fL (7.4-10.4) H 06/15/22 06:40 Neut % (Auto) 52.0 % 06/15/22 06:40 Lymph % (Auto) 23.9 % 06/15/22 06:40 [place] % (Auto) 10.2 % 06/15/22 06:40 Eos % (Auto) 12.3 % 06/15/22 06:40 Baso % (Auto) 1.1 % 06/15/22 06:40 Neut # (Auto) 3.33 10^3/uL (1.8-7.7) 06/15/22 06:40 Lymph # (Auto) 1.5 10^3/uL (0.8-4.8) 06/15/22 06:40 [place] # (Auto) 0.7 10^3/uL (0.2-0.9) 06/15/22 06:40 Eos # (Auto) 0.8 10^3/uL (0.0-0.8) 06/15/22 06:40 Baso # (Auto) 0.1 10^3/uL (0.0-0.1) 06/15/22 06:40 Nucleated RBC % (auto) 0 % 06/15/22 06:40 Nucleated RBCs # 0.0 /100WBC 06/15/22 06:40 Sodium 136 mmol/L (136-145) 06/15/22 06:40 Potassium 3.6 mmol/L (3.5-5.1) 06/15/22 06:40 Chloride 98 mmol/L (98-107) 06/15/22 06:40 Carbon Dioxide 29 mmol/L (22-29) 06/15/22 06:40 Anion Gap 12.6 (5-19) 06/15/22 06:40 BUN 12 mg/dL (8-23) 06/15/22 06:40 Creatinine 0.8 mg/dL (0.7-1.2) 06/15/22 06:40 GFR Calculation 97.0 mL/min (90-130) 06/15/22 06:40 Glucose 249 mg/dL (65-115) H 06/15/22 06:40 POC Glucose 303 mg/dL (70-110) H 06/15/22 20:46 Calculated Osmolality 290 mOsm/kg (285-295) 06/15/22 06:40 Calcium 9.3 mg/dL (8.5-10.5) 06/15/22 06:40 Vitals Last Vital Signs Temp 98.1 F 06/16/22 04:00 Pulse 78 06/16/22 06:00 Resp 22 H 06/16/22 06:00 BP 141/89 06/16/22 06:00 Pulse Ox 97 06/16/22 06:00 O2 Del Method 06/16/22 06:00 O2 Flow Rate 2 06/16/22 02:30 Discharge Plan Discharge Patient Disposition: Home Condition: Stable Prescriptions: New oxycodone 5 mg tablet 5 mg PO Q4H PRN (Reason: pain) Qty: 40 0RF loratadine 10 mg tablet 10 mg PO DAILY Qty: 30 0RF Continued atorvastatin [Lipitor] 20 mg tablet 20 mg PO DAILY aspirin 325 mg tablet 325 mg PO DAILY glipizide 10 mg tablet extended release 24hr 10 mg PO DAILY metformin 1,000 mg Tablet 1,000 mg PO BID hydrochlorothiazide 25 mg tablet 25 mg PO DAILY albuterol sulfate [Ventolin HFA] 90 mcg/actuation HFA aerosol inhaler 2 puff INHALATION Q4H PRN (Reason: Shortness Of Breath) Januvia 100 mg tablet 100 mg PO DAILY amlodipine 5 mg Tablet 5 mg PO DAILY tamsulosin 0.4 mg capsule 0.4 mg PO DAILY Discontinued lisinopril 40 mg tablet 40 mg PO BID oxycodone 5 mg tablet 5 mg PO Q4H PRN (Reason: pain) Qty: 40 0RF Discharge Orders: Discharge Order (Routine); Ordered 06/15/22 Ordered By: Brodie Mckeon Referrals: Mary Grace Corrales MD [Primary Care Provider] - 4-7 days Pedro Johnson FNP [Physician Safety Tech] - 06/20/22 8:30 am Discharge Diet: Advance as tolerated Discharge Activity: Limit activity as instructed Patient Instructions: Opioid Safety, Post Anesthesia Care Activity Restrictions/Additional Instructions: May remove shoulder dressing in 48 hours and applied Band-Aids as necessary May shower once incisions free of drainage. Leave arm in sling/immobilizer at all times except when showering or performing exercises. Avoiding any active use of the left shoulder. May remove sling for exercises Pendulum exercises to shoulder Active range of motion to elbow wrist and hand May apply cold compression as necessary for pain and swelling May take [id number] anti-inflammatories such as ibuprofen or Aleve with pain medications if you can tolerate these medications Take all medicine as prescribed Follow-up with your primary care provider 5 to 7 days Return for any concerns Patient's Health Concerns: Difficulty breathing following surgery Assessment: Had stridor, now resolved Plan of Treatment: Return for any concerns Discontinue NIYAH inhibitor, although not likely related Loratadine 10 mg daily Goals: No recurrence of shortness of breath/stridor Discharge Attestations Time Spent in Discharge Care*: greater than 30 min Quality Metrics Clinical Quality Measures [ No reported AMI, CVA or VTE this stay] Coding Level of Care Code Acute Chg FW [place] note Diagnoses Stridor R06.1 Angioedema T78.3XXA Asthma J45.909 Diabetes mellitus E11.9
== END 2022-06-16 07:45 | disposition home or self-care (01) ==
LOC: ICU 12:15
PROVIDERS: Anesthesiology; Admitting Provider Orthopaedic Surgery; PCP Internal Medicine; Visit Provider Internal Medicine
PROC: (CPT 29826; principal; 2022-06-15 07:00)
PROC: (CPT 23430; 2022-06-15 07:00)
PROC: (CPT 29805; 2022-06-15 07:00)
DX: M75.101 Unspecified rotator cuff tear or rupture of right shoulder, not specified as traumatic (principal); R06.01 Orthopnea; T78.3XXA Angioneurotic edema, initial encounter; J45.909 Unspecified asthma, uncomplicated; E11.9 Type 2 diabetes mellitus without complications; Z79.82 Long term (current) use of aspirin; I25.10 Atherosclerotic heart disease of native coronary artery without angina pectoris; E78.5 Hyperlipidemia, unspecified; E66.01 Morbid (severe) obesity due to excess calories; Z68.37 Body mass index [BMI] 37.0-37.9, adult; G47.33 Obstructive sleep apnea (adult) (pediatric); I10 Essential (primary) hypertension
CPT/HCPCS: 29826; 29827; 29828; 36416; 71045; 80048; 82962; 85025; 93005; 94640; 96372; C1713; G0378; J0330; J1100; J1170; J1200; J1580; J1815; J2370; J2405; J2704; J2710; J2795; J3010; J3490; J7030

== ENCOUNTER 2022-08-29 06:22 | Emergency (ER) | payer OTHER, MEDICARE, SELFPAY ==
[2022-08-29] VITALS (7 sets, daily range): BP systolic 141–170; BP diastolic 91–101; PULSE 87–96; RESP 16–22; TEMP 36.6; O2SAT 92–97; BMI 36.8
--- NOTE | 2022-08-29 07:02 | XR_ITS ---
WS: [id number] K[facility], AP portable supine view, 08/29/2022 Clinical Data: renal stone Comparison: KUB, 01/28/2013. Findings: No abnormal intraabdominal masses or calcifications are seen. There is no dilatated small bowel or ev idence of obstruction. There is a large amount of fecal material throughout the colon. There is minimal air in the small bow el. There are clips in the right upper quadrant from a cholecystectomy. 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 XR/XR KUB portable [id number] Impression: Large amount of fecal material in the colon.
--- NOTE | 2022-08-29 07:02 | W.ED.BACK ---
HPI - Back Pain/Injury General: Chief Complaint: Back Pain/Injury Stated Complaint: Left Flank Pain Time Seen by Provider: 08/29/22 06:41 Source: patient Mode of arrival: ambulatory History of Present Illness: [id number] male with a history of nephrolithiasis presents with left-sided flank pain states similar to what he had in the past he is very uncomfortable shifting continuously. Its in his flank radiating to his groin rates it a 10 of 10 he denies any he has been nauseous. MD elicited complaint: other (Kidney stone) Pertinent past history: kidney stones Onset (ago): day(s) Timing: constant Severity: severe Similar Symptoms Previously: Yes Quality: sharp Location: left flank Radiation: groin Exacerbating factors: none Relieving factors: none Associated symptoms: Reports vomiting; Deny abdominal pain, arthralgias, chills, change in bowel habits, difficulty walking, dysuria, fatigue, fecal incontinence, fever(s), hematuria, myalgias, nausea, numbness, syncope, tingling/numbness/burning, urinary frequency, urinary urgency or weakness Review of Systems Const: Denies: fever(s), chills, fatigue or malaise ENMT: Denies: throat pain, ear or mastoid pain, nasal discharge or nasal congestion Card: Denies: syncope Resp: Denies: dyspnea, productive cough or non-productive cough GI: Reports: vomiting; Denies: abdominal pain, nausea, fecal incontinence or change in bowel habits : Denies: dysuria, urinary frequency, urinary urgency or hematuria Skin/Breast: Denies: rash or pruritus Neuro: Denies: difficulty walking PFSH ED PFSH: Medical History Angioedema Asthma Coronary artery disease Diabetes mellitus Hyperlipidemia Hypertension Obesity Obstructive sleep apnea Surgical History History of appendectomy History of cholecystectomy History of coronary artery stent placement History of knee surgery Family History Other CAD (coronary artery disease) Cancer Diabetes Social History Smoking and tobacco status: never smoked Alcohol intake: never Physical Exam Const: GENERAL APPEARANCE: cooperative and comfortable ORIENTATION/CONSCIOUSNESS: Yes awake, Yes oriented to person, Yes oriented to place and Yes oriented to time HENMT: COMMON NORMALS: normocephalic, atraumatic and hearing grossly normal bilaterally HEAD & SCALP: normocephalic and atraumatic Resp: COMMON NORMALS: normal respiratory effort, No retractions, No use of accessory muscles and clear to auscultation bilaterally AUSCULTATION: clear to auscultation bilaterally Cardio: COMMON NORMALS: regular rate, regular rhythm and No murmurs present (Cardio) RATE: regular rate RHYTHM: regular rhythm GI: COMMON NORMALS: Soft to palpation and No hepatosplenomegaly present AUSCULTATION: Yes normoactive bowel sounds PALPATION: Yes Soft to palpation, No Tenderness to palpation present (GI), No Guarding due to palpation present (GI) and Yes No hepatosplenomegaly present Extremity: COMMON NORMALS: normal to inspection, capillary refill normal, no clubbing, cyanosis or edema, no calf tenderness and no pedal edema Neuro: SENSORIUM/ORIENTATION: Yes oriented to person, Yes oriented to place and Yes oriented to time Skin: COMMON NORMALS: no rashes or lesions noted GENERAL SKIN EXAM: no rashes or lesions noted Course Vital Signs: Vital signs: Vital Signs Temperature 97.8 F 08/29/22 06:30 Pulse Rate 92 08/29/22 06:38 Respiratory Rate 17 08/29/22 08:18 Blood Pressure 159/94 08/29/22 06:38 Pulse Oximetry 92 08/29/22 08:18 Oxygen Delivery Me thod 08/29/22 06:38 MDM - Back Pain/Injury Medical Decision Making 4 mm left nephrolithiasis. Pain control discharge home increase Flomax strain urine hydrocodone as needed for pain follow-up with Dr. Catalan for definitive care. Return if pain uncontrolled. Medical Records I reviewed the patient's medical records. Labs I reviewed the patient's lab results. 08/29/22 07:25 08/29/22 07:25 Radiology Impressions KUB X-Ray 08/29/22 07:02 Impression: Large amount of fecal material in the colon. Abdomen/Pelvis CT 08/29/22 07:56 IMPRESSION: 1. 4.3 mm obstructing calculus just proximal to the LEFT UVJ. Mild LEFT ureterectasis and hydronephrosis. 2. No obstructing RIGHT renal or ureteral calculi. 3. Prostate enlargement measuring 5.5 CM. Recommend correlation PSA. 4. No other acute findings. Notified Roque Calles DO at 08/29/2022 8:31 AM. Laboratory Results WBC 8.7 10^3/uL (4.0-10.0) 08/29/22 07:25 RBC 4.92 10^6/uL (4.1-5.3) 08/29/22 07:25 Hgb 14.5 g/dL (11.7-16.6) 08/29/22 07:25 Hct 41.2 % (42.0-52.0) L 08/29/22 07:25 MCV 83.7 fl (80-94) 08/29/22 07:25 MCH 29.5 pg (28.0-34.0) 08/29/22 07:25 MCHC 35.2 g/dL (30.0-36.0) 08/29/22 07:25 RDW 13.6 % (12.1-15.1) 08/29/22 07:25 Plt Count 209 10^3/cmm (130-400) 08/29/22 07:25 MPV 10.9 fL (7.4-10.4) H 08/29/22 07:25 Neut % (Auto) 70.5 % 08/29/22 07:25 Lymph % (Auto) 15.4 % 08/29/22 07:25 [place] % (Auto) 8.4 % 08/29/22 07:25 Eos % (Auto) 4.8 % 08/29/22 07:25 Baso % (Auto) 0.6 % 08/29/22 07:25 Neut # (Auto) 6.13 10^3/uL (1.8-7.7) 08/29/22 07:25 Lymph # (Auto) 1.3 10^3/uL (0.8-4.8) 08/29/22 07:25 [place] # (Auto) 0.7 10^3/uL (0.2-0.9) 08/29/22 07:25 Eos # (Auto) 0.4 10^3/uL (0.0-0.8) 08/29/22 07:25 Baso # (Auto) 0.1 10^3/uL (0.0-0.1) 08/29/22 07:25 Nucleated RBC % (auto) 0 % 08/29/22 07:25 Nucleated RBCs # 0.0 /100WBC 08/29/22 07:25 Sodium 130 mmol/L (136-145) L 08/29/22 07:25 Potassium 3.9 mmol/L (3.5-5.1) 08/29/22 07:25 Chloride 95 mmol/L (98-107) L 08/29/22 07:25 Carbon Dioxide 27 mmol/L (22-29) 08/29/22 07:25 Anion Gap 11.9 (5-19) 08/29/22 07:25 BUN 20 mg/dL (8-23) 08/29/22 07:25 Creatinine 1.0 mg/dL (0.7-1.2) 08/29/22 07:25 GFR Calculation 75.0 mL/min (90-130) L 08/29/22 07:25 Glucose 301 mg/dL (65-115) H 08/29/22 07:25 Calculated Osmolality 284 mOsm/kg (285-295) L 08/29/22 07:25 Calcium 10.0 mg/dL (8.5-10.5) 08/29/22 07:25 Urine Color Yellow (Yellow) 08/29/22 07:25 Urine Appearance Clear (CLEAR) 08/29/22 07:25 Urine pH 5 (5-7) 08/29/22 07:25 Ur Specific [place] 1.015 (1.005-1.030) 08/29/22 07:25 Urine Protein 1+ (Negative) H 08/29/22 07:25 Urine Glucose (UA) 4+ (Normal) H 08/29/22 07:25 Urine Ketones Negative (Negative) 08/29/22 07:25 Urine Blood 2+ (Negative) H 08/29/22 07:25 Urine Nitrate Negative (Negative) 08/29/22 07:25 Urine Bilirubin Neg (Negative) 08/29/22 07:25 Urine Urobilinogen Norm mg/dL (Negative) 08/29/22 07:25 Ur Leukocyte Esterase Negative (Negative) 08/29/22 07:25 Urine RBC 0-4 /hpf (0-2) H 08/29/22 07:25 Urine WBC 0-4 /hpf (0-5) H 08/29/22 07:25 Ur Squamous Epith Cells Rare /hpf (0-5) 08/29/22 07:25 Amorphous Sediment Not Reportable 08/29/22 07:25 Urine Bacteria Trace /hpf (NONE) 08/29/22 07:25 Discharge Plan Discharge Patient Disposition: Home Clinical Impression: Left nephrolithiasis Condition: Stable Prescriptions: New hydrocodone-acetaminophen 5-325 mg tablet 1 tab PO Q6H PRN (Reason: pain) Qty: 20 0RF Flomax 0.4 mg capsule 0.4 mg PO BID Qty: 60 0RF ondansetron HCl 4 mg tablet 4 mg PO Q6H PRN (Reason: nausea and vomiting) Qty: 20 0RF No Action hydrocodone-acetaminophen 5-325 mg tablet 1 tab PO Q4H PRN (Reason: pain) 5 Days Qty: 30 0RF atorvastatin [Lipitor] 20 mg tablet 20 mg PO DAILY aspirin 325 mg tablet 325 mg PO DAILY glipizide 10 mg tablet extended release 24hr 10 mg PO DAILY metformin 1,000 mg Tablet 1,000 mg PO BID hydrochlorothiazide 25 mg tablet 25 mg PO DAILY albuterol sulfate [Ventolin HFA] 90 mcg/actuation HFA aerosol inhaler 2 puff INHALATION Q4H PRN (Reason: Shortness Of Breath) Januvia 100 mg tablet 100 mg PO DAILY amlodipine 5 mg Tablet 5 mg PO DAILY tamsulosin 0.4 mg capsule 0.4 mg PO DAILY loratadine 10 mg tablet 10 mg PO DAILY Qty: 30 0RF Discharge Orders: Discharge ED (Routine); Ordered 08/29/22 Ordered By: Roque Calles Referrals: Mary Grace Corrales MD [Primary Care Provider] - Patient Instructions: Opioid Safety, Pain Management Coding Level of Care Code ED Header Setup Operator for [facility]
[2022-08-29] MEDS: morphine 4 mg/mL SDV 1 mL IVP ×3 (07:29→09:30)
[2022-08-29] MEDS: ondansetron 2 mg/ML SDV 2 mL 4 MG IVP (07:29)
[2022-08-29 07:40] LABS: Basophils # 0.1 10^3/uL (0.0-0.1); Basophils % 0.6 %; Eosinophils # 0.4 10^3/uL (0.0-0.8); Eosinophils % 4.8 %; Hematocrit 41.2 % (42.0-52.0); Hemoglobin 14.5 g/dL (11.7-16.6); Lymphocytes # 1.3 10^3/uL (0.8-4.8); Lymphocytes % 15.4 %; Mean Corpuscular HGB Conc 35.2 g/dL (30.0-36.0); Mean Corpuscular Hemoglobin 29.5 pg (28.0-34.0); Mean Corpuscular Volume 83.7 fl (80-94); Mean Platelet Volume 10.9 fL (7.4-10.4); Monocytes # 0.7 10^3/uL (0.2-0.9); Monocytes % 8.4 %; Neutrophils # 6.13 10^3/uL (1.8-7.7); Neutrophils % 70.5 %; Nucleated Red Blood Cells % 0 %; Platelet Count 209 10^3/cmm (130-400); Red Blood Count 4.92 10^6/uL (4.1-5.3); Red Cell Distribution Width 13.6 % (12.1-15.1); White Blood Count 8.7 10^3/uL (4.0-10.0)
[2022-08-29 07:50] LABS: Blood Urine 2+ (Negative); Glucose Urine UA 4+ (Normal); Ketones Urine Negative (Negative); Protein Urine 1+ (Negative); Specific Gravity, Urine 1.015 (1.005-1.030); Urine Appearance Clear (CLEAR); Urine Color Yellow (Yellow); pH Urine 5 (5-7)
[2022-08-29 07:51] LABS: Add Urine Culture? No; Add Urine Microscopic? YES; Bacteria Urine TRACE /hpf; Bilirubin Urine Neg (Negative); Leukocyte Esterase Urine Negative (Negative); Nitrate Urine Negative (Negative); RBC Urine 0-4 /hpf (0-2); Squamous Epithelial Cell Urine RARE /hpf (0-5); Urobilinogen Urine Norm (Negative); WBC Urine 0-4 /hpf (0-5)
[2022-08-29 07:54] LABS: Anion Gap 11.9 (5-19); Blood Urea Nitrogen 20 mg/dL (8-23); Carbon Dioxide 27 mmol/L (22-29); Chloride 95 mmol/L (98-107); Glucose 301 mg/dL (65-115); Osmolality Calculated 284 mOsm/kg (285-295); Potassium 3.9 mmol/L (3.5-5.1); Sodium 130 mmol/L (136-145)
--- NOTE | 2022-08-29 07:56 | CT_ITS ---
WS: [id number] CT ABDOMEN PELVIS TECHNIQUE: Noncontrast CT of the abdomen and pelvis with coronal and sagittal reformatted images. CLINICAL INFORMATION: flank pain COMPARISON: CT 2011 DLP: 1310.[address] scans at [facility] use at least one of these dose optimization techniques: automated e xposure control; mA and/or kV adjustment per patient size (includes targeted exams where dose is matc hed to clinical indication); or iterative reconstruction. FINDINGS: Small obstructing calculus just proximal to the LEFT UVJ measuring approximately 4.3 mm. Mild LEFT hy dronephrosis and LEFT ureterectasis. Perinephric edema about both kidneys can be seen with renal insu fficiency. No hydronephrosis in RIGHT kidney. RIGHT ureter is decompressed. Lung bases are well aerated. Prior cholecystectomy. Noncontrast liver and spleen are normal. Normal G E junction. Adrenal glands are normal. Fatty atrophy of the pancreas. Splenic artery calcification. Urine distended bladder. Enlarged prostate measuring 5.5 cm with indentation on the bladder. Sigmoid diverticulosis. No evidence of acute diverticulitis.No free fluid in the pelvis. Mild aortic calcific ation. Normal caliber abdominal aorta. Disc osteophyte complex with moderate central canal stenosis L1-L2. CT/CT kidney stone [id number] IMPRESSION: 1. 4.3 mm obstructing calculus just proximal to the LEFT UVJ. Mild LEFT ureter ectasis and hydronephrosis. 2. No obstructing RIGHT renal or ureteral calculi. 3. Prostate enlargement measuring 5.5 CM. Recommend correlation PSA. 4. No other acute findings. Notified Roque Calles DO at 08/29/2022 8:31 AM.
--- NOTE | 2022-08-29 10:36 | DCPLANNER ---
Addendum entered by Radha Villarreal 09/08/22 10:02: Patient had a follow up appointment scheduled with urology - patient did attend appointment. Addendum entered by Radha Villarreal 08/29/22 15:22: Patient has a follow up appointment scheduled for Sunday, September 01, [address]22 at 7:[address] Catalan at urology. Clinic will call patient with appointment information. Original Note: manager of training had message to schedule a follow up appointment for patient with urology. manager of training sent patients information to the front office staff at urology. Patients information will be printed and reviewed. Clinic will call patient with appointment information.
== END 2022-08-29 09:30 | disposition home or self-care (01) ==
PROVIDERS: Emergency Provider Family Medicine; PCP Internal Medicine
DX: N13.2 Hydronephrosis with renal and ureteral calculous obstruction (principal); Z79.82 Long term (current) use of aspirin; Z79.84 Long term (current) use of oral hypoglycemic drugs; I25.10 Atherosclerotic heart disease of native coronary artery without angina pectoris; E11.9 Type 2 diabetes mellitus without complications; E78.5 Hyperlipidemia, unspecified; I10 Essential (primary) hypertension
CPT/HCPCS: 74018; 74176; 80048; 81001; 85025; 96374; 96375; 96376; 99285; J2270; J2405

== ENCOUNTER 2022-09-01 06:41 | Outpatient (CLI) | payer OTHER, MEDICARE, SELFPAY ==
--- NOTE | 2022-09-01 07:09 | XR_ITS ---
WS: [id number] KUB, AP view, 09/01/2022 Clinical Data: STONES Comparison: KUB, 08/29/2022, CT abdomen pelvis, 08/29/2022. Findings: No abnormal intraabdominal masses or calcifications are seen. There is no dilatated small bowel or ev idence of obstruction. There is a large amount of fecal material obscuring details over both kidneys. There are clips in the right upper quadrant from a cholecystectomy. The lumbar vertebral bodies show osteoarthritis. The di stal left UVJ calculus noted on the CT abdomen pelvis is not seen. XR/XR KUB [id number] Impression: Negative KUB.
== END 2022-09-01 06:42 | disposition home or self-care (01) ==
LOC: RAD 06:43
PROVIDERS: PCP Internal Medicine; Visit Provider Urology
DX: N20.2 Calculus of kidney with calculus of ureter (principal)
CPT/HCPCS: 74018; 81003; 99203

== ENCOUNTER → 2022-09-06 08:09 | Outpatient (BNVA) | payer OTHER, MEDICARE, SELFPAY | PROVIDERS: PCP Internal Medicine; Visit Provider Nurse Practitioner Family | DX: Z98.890 Other specified postprocedural states (principal) | CPT/HCPCS: 99213 ==

== ENCOUNTER 2022-09-08 07:12 | Outpatient (CLI) | payer OTHER, MEDICARE, SELFPAY ==
--- NOTE | 2022-09-08 07:20 | XR_ITS ---
WS: [id number] KUB, AP view, 09/08/2022 Clinical Data: Kidney Stone Comparison: KUB, 09/01/2022 Findings: No abnormal intraabdominal masses or calcifications are seen. There is no dilatated small bowel or ev idence of obstruction. There is fecal material throughout the colon. There are clips in the right upper quadrant from a chol ecystectomy and osteoarthritis of the lumbar spine. XR/XR KUB 08008 Impression: Negative KUB.
== END 2022-09-08 07:13 | disposition home or self-care (01) ==
LOC: RAD 07:15
PROVIDERS: PCP Internal Medicine; Visit Provider Urology
DX: N20.2 Calculus of kidney with calculus of ureter (principal)
CPT/HCPCS: 74018; 81003; 82365; 88300; 99213

== ENCOUNTER 2023-03-11 19:28 | Emergency (ER) | payer OTHER, MEDICARE, SELFPAY ==
[2023-03-11 19:28] VITALS: BP 178/72; PULSE 81; RESP 18; TEMP 36.4; O2SAT 97; BMI 36.8
--- NOTE | 2023-03-11 20:42 | XRR_ITS ---
PROCEDURE INFORMATION: Exam: XR Right Foot Exam date and time: 03/11/2023 9:11 PM Age: 68 years old Clinical indication: Pain; Foot; Right; Additional info: Foot pain, dropped wooden board on top of foot TECHNIQUE: Imaging protocol: Radiologic exam of the right foot. Views: 3 or more views. COMPARISON: No relevant prior studies available. FINDINGS: Bones/joints: There are hammertoe deformities of the right 2nd through 5th toes. There is moderate plantar calcaneal spur. There is some spurring at the attachment of the Achilles tendon. There is some degenerative spurring from the distal talus. There is nondisplaced fracture involving the lateral corner of the base of the 1st distal phalanx. Please correlate with clinical findings. No other acute fracture is demonstrated. Soft tissues: Normal. XR/XR foot RT min 3V* [id number] IMPRESSION: Corner fracture involving the 1st distal phalanx.
--- NOTE | 2023-03-11 22:14 | W.ED.EXTPRO ---
HPI - Extremity Problem General: Chief complaint: Extremity Injury, Lower Stated complaint: right foot injury Time Seen by Provider: 03/11/23 20:39 Source: patient Mode of arrival: ambulatory Limitations: no limitations History of Present Illness: Patient presents to the emergency department today accompanied by his for evaluation treatment of injury sustained to his right foot and toes. Patient states that he was in his wood shop and accidentally dropped a wooden board on his foot. He indicated the corner of the board impacted around the base of his right great toe. He has had swelling and bruising in that area and over towards his second toe base since that time. He did put some ice on it last night but, due to the pain and with him being a diabetic, his wanted him to come in and be evaluated. Patient does experience neuropathy in his feet. Review of Systems General: Reports: 10 or more systems reviewed and unremarkable except in HPI and below PFSH ED PFSH: Medical History Angioedema Asthma Coronary artery disease Diabetes mellitus Hyperlipidemia Hypertension Obesity Obstructive sleep apnea Surgical History History of appendectomy History of cholecystectomy History of coronary artery stent placement History of knee surgery Family History Mother , AT AGE 82 Cancer PANCREAS Father , AT AGE 63 Heart attack Other CAD (coronary artery disease) Diabetes Social History Smoking and tobacco status: never smoked Alcohol intake: never Marital status: Current occupational status: retired Physical Exam Const: COMMON NORMALS: no acute distress, patient oriented x3 and alert HENMT: COMMON NORMALS: normocephalic, atraumatic and hearing grossly normal bilaterally HEAD & SCALP: normocephalic and atraumatic Eye: COMMON NORMALS: Equal, round and reactive pupils present, EOMs intact bilaterally and conjunctivae normal CONJUNCTIVA: Yes conjunctivae normal PUPIL: Yes Equal, round and reactive pupils present Neck/C-Spine: COMMON NORMALS: full ROM and no JVD Lymph: LYMPHATIC: no lymphadenopathy noted Resp: COMMON NORMALS: normal respiratory effort, No retractions and No use of accessory muscles Cardio: COMMON NORMALS: no JVD and regular rate RATE: regular rate Extremity: NARRATIVE EXTREMITY EXAM: Patient is independently ambulatory and weightbearing on his right lower extremity. Neuro: COMMON NORMALS: patient oriented x3 SENSORIUM/ORIENTATION: Yes alert Psych: COMMON NORMALS: mental status grossly normal, Normal thought process present, cooperative and normal affect THOUGHT PROCESS: Normal thought process present Skin: COMMON NORMALS: no rashes or lesions noted and turgor normal NARRATIVE SKIN EXAM: Patient with bruising of the right great toe extending into the first MTP joint and through the webspace between the first and second toe and at the base of the second toe at the MTP joint. No signs of open wounds, abrasions, lacerations, or bleeding. Nail is intact without injury. GENERAL SKIN EXAM: no rashes or lesions noted and turgor normal Course Vital Signs: Vital signs: Vital Signs Temperature 97.5 F L 03/11/23 19:28 Pulse Rate 81 03/11/23 19:28 Respiratory Rate 18 03/11/23 19:28 Blood Pressure 178/72 03/11/23 19:28 Pulse Oximetry 97 03/11/23 19:28 Oxygen Delivery Me thod Room Air 03/11/23 19:28 MDM - Extremity (Nontraumatic) Medical Decision Making Patient presented to the emergency department today for evaluation treatment of right foot injury. Initially, x-ray had not finalized or interpretation and, on my capability to view the films, did not see any obvious signs of fracture. He does have quite a bit of [id number] osteoarthritic changes. Discussed with the patient that while I did not see anything obvious, the amount of bruising and swelling does warrant a follow-up and requested he see his primary care doctor for recheck and, possibly a second set of films in about 1 week. We discussed at home RICE therapy and I did offer him a postop shoe. However, patient is relatively active and postop shoe would not provide much protection to his toe so I encouraged socks and closed toed shoes or steel toed shoes during this time. They verbalized understanding and agreement to treatment plan. Just prior to patient being discharged by the nurse, the final read did come in and indicated the possibility of a corner fracture of the first distal phalanx. Upon reexamination, I do see the possibility of this finding primarily/only on the oblique view but, does clinically correlate with the patient's area of injury and bruising. I went back and spoke to the patient regarding these findings and again, went over recommended treatment course. They will continue to watch for signs of secondary infection for which patient would need treated due to his diabetes and, we will keep a follow-up appointment with the primary care provider. follow up with orthopedics also initiated on their behalf if needed. Differential Diagnosis Likely gout and cellulitis (crush injury, contusion) Lab Data Radiology Impressions Foot X-Ray 03/11/23 20:42 IMPRESSION: Corner fracture involving the 1st distal phalanx. Discharge Plan Discharge Patient Disposition: Home Clinical Impression: Contusion of great toe of right foot Condition: Stable Prescriptions: No Action hydrocodone-acetaminophen 5-325 mg tablet 1 tab PO Q6H PRN (Reason: pain) 5 Days Qty: 20 0RF atorvastatin [Lipitor] 20 mg tablet 20 mg PO DAILY aspirin 325 mg tablet 325 mg PO DAILY glipizide 10 mg tablet extended release 24hr 10 mg PO DAILY metformin 1,000 mg Tablet 1,000 mg PO BID hydrochlorothiazide 25 mg tablet 25 mg PO DAILY albuterol sulfate [Ventolin HFA] 90 mcg/actuation HFA aerosol inhaler 2 puff INHALATION Q4H PRN (Reason: Shortness Of Breath) Januvia 100 mg tablet 100 mg PO DAILY amlodipine 5 mg Tablet 5 mg PO DAILY loratadine 10 mg tablet 10 mg PO DAILY Qty: 30 0RF Flomax 0.4 mg capsule 0.4 mg PO BID Qty: 60 0RF ondansetron HCl 4 mg tablet 4 mg PO Q6H PRN (Reason: nausea and vomiting) Qty: 20 0RF Discharge Orders: Discharge ED (Routine); Ordered 03/11/23 Ordered By: Salome Cabrales Referrals: Mary Grace Corrales MD [Primary Care Provider] - Discharge Diet: Usual diet Discharge Activity: Increase activity as tolerated Patient Instructions: Foot Contusion (ED) Activity Restrictions/Additional Instructions: Final x-ray interpretation is still pending by radiology however, in my opinion I see no signs of any obvious fractures. However, with the swelling and bruising from your injury it is obvious that there has been soft tissue injury resulting in bleeding in and under the skin. Given your history of diabetes want to carefully monitor for any signs of inflammation or erythema which could be indicative of development of infection. Also, I do recommend a follow-up appointment with your primary care doctor in approximately 1 week for recheck as sometimes, small hairline fractures are not visible on initial sets of films. I recommend keeping the toe covered with closed toed shoes and socks. Is much as possible, keep your foot up and elevated to help with swelling which will develop through the day. You can also apply ice for 15 to 20 minutes at a time, multiple times throughout the day. Coding Level of Care Code ED Field Adjuster for Neema Hardwick
--- NOTE | 2023-03-12 07:59 | DCPLANNER ---
Addendum entered by Radha Villarreal 03/13/23 15:55: resource manager received the following message from the ortho clinic regarding follow up appointment: PATIENT DECLINES APT AT THIS TIME AND WISHES TO FWUP WITH HIS PCP On Sun 9:29a Mar 12, 2023 Jaclyn Rojas (Covering For: [facility]) Wrote To: [facility] Left vm with pt to call back and schedule with Dr. Goodman Rojas,Jaclyn completed item. On Sun 8:45a Mar 12, 2023 Jaclyn Rojas (Covering For: [facility]) Wrote To: [facility] In review Original Note: resource manager had message to schedule a follow up appointment for patient with ortho. resource manager sent patients information to the front office staff at ortho. Patients information will be printed and reviewed. Clinic will call patient with appointment information.
== END 2023-03-11 22:15 | disposition home or self-care (01) ==
PROVIDERS: Emergency Provider Physician Assistant; PCP Internal Medicine
DX: S92.421A Displaced fracture of distal phalanx of right great toe, initial encounter for closed fracture (principal); E11.9 Type 2 diabetes mellitus without complications; E78.5 Hyperlipidemia, unspecified; I10 Essential (primary) hypertension; I25.10 Atherosclerotic heart disease of native coronary artery without angina pectoris; J45.909 Unspecified asthma, uncomplicated; G47.33 Obstructive sleep apnea (adult) (pediatric); Z79.899 Other long term (current) drug therapy; Z79.84 Long term (current) use of oral hypoglycemic drugs; W20.8XXA Other cause of strike by thrown, projected or falling object, initial encounter
CPT/HCPCS: 73630; 99283

== ENCOUNTER 2023-05-03 09:46 | Emergency (ER) | payer OTHER, MEDICARE, SELFPAY ==
[2023-05-03 09:48] VITALS: BP 142/88; PULSE 87; RESP 16; TEMP 37.2; O2SAT 96; BMI 36.2
--- NOTE | 2023-05-03 09:59 | XR_ITS ---
WS: [id number] Exam: XR hand LT min 3V* [id number] Date/Time of Exam: 05/03/2023 10:02 AM Reason For Exam: trauma There is a markedly comminuted fracture of the distal phalanx of the index finger with amputation of the distal soft tissues. There is also amputation of the distal end of the third finger to include th e distal tuft. No other acute injuries are noted. Moderately advanced degenerative changes in the IP and MP joints. DJD at the first CMC joint. IMPRESSION: 1. Amputation of the distal end of the third finger to include the distal tip of the phalanx and asso ciated soft tissues. There is also a severely comminuted fracture of the distal end of the distal pha lanx of the index finger with amputation of the distal soft tissues.
[2023-05-03] MEDS: ondansetron 2 mg/ML SDV 2 mL 4 MG IVP (10:16)
[2023-05-03] MEDS: morphine 4 mg/mL SDV 1 mL IVP ×5 (10:16→12:20)
[2023-05-03] MEDS: ceFAZolin 1,000 MG in sodium chloride 0.9% (plus) 50 ML 100 MG IV (10:20)
[2023-05-03 10:22] VITALS: PULSE 88; O2SAT 94
--- NOTE | 2023-05-03 10:32 | W.ED.EXTPRO ---
HPI - Extremity Problem General: Chief complaint: Extremity Injury, Upper Stated complaint: cut finges Time Seen by Provider: 05/03/23 09:49 Source: patient Mode of arrival: ambulatory History of Present Illness: 68-year-old male presents emergency room with injury to the second and third finger of his left hand from using a table saw. No active bleeding he is not on blood thinner. His last tetanus shot was 2 to 3 years ago. MD Complaint: extremity pain Onset (ago): minute(s) Pain Consistency: constant Location: left (Tip second third fingers) Quality: sharp Relieving factors: nothing Exacerbating factors: nothing Associated symptoms: Reports no associated symptoms; Deny chest pain, fever(s) or rash Review of Systems Const: Denies: fever(s), chills, body aches, change in appetite, fatigue or malaise ENMT: Denies: throat pain, ear or mastoid pain, nasal discharge or nasal congestion Card: Denies: chest pain, edema, dyspnea on exertion or orthopnea Resp: Denies: dyspnea, productive cough or non-productive cough GI: Denies: abdominal pain, nausea, vomiting, hematemesis, coffee ground emesis, diarrhea, constipation, bloating, hematochezia or melena : Denies: flank pain, dysuria, urinary frequency or urinary urgency Skin/Breast: Denies: rash or pruritus PFSH ED PFSH: Medical History Angioedema Asthma Coronary artery disease Diabetes mellitus Hyperlipidemia Hypertension Obesity Obstructive sleep apnea Surgical History History of appendectomy History of cholecystectomy History of coronary artery stent placement History of knee surgery Family History Mother , AT AGE 82 Cancer PANCREAS Father , AT AGE 63 Heart attack Other CAD (coronary artery disease) Diabetes Social History Smoking and tobacco status: never smoked Alcohol intake: never Marital status: Current occupational status: retired Physical Exam Const: GENERAL APPEARANCE: cooperative ORIENTATION/CONSCIOUSNESS: Yes awake, Yes oriented to person, Yes oriented to place and Yes oriented to time HENMT: COMMON NORMALS: normocephalic, atraumatic and hearing grossly normal bilaterally HEAD & SCALP: normocephalic and atraumatic Resp: COMMON NORMALS: normal respiratory effort, No retractions, No use of accessory muscles and clear to auscultation bilaterally AUSCULTATION: clear to auscultation bilaterally Cardio: COMMON NORMALS: regular rate, regular rhythm and No murmurs present (Cardio) RATE: regular rate RHYTHM: regular rhythm Extremity: OTHER: Left index and third finger tissue defects with the tip of the third finger and the dorsum and nailbed of the second finger are absent. Not amenable to direct closure by suturing. X-ray shows fractures and partial loss of the tip of the tuft of the third finger. Neuro: SENSORIUM/ORIENTATION: Yes oriented to person, Yes oriented to place and Yes oriented to time Course Vital Signs: Vital signs: Vital Signs Temperature 98.9 F 05/03/23 09:48 Pulse Rate 88 05/03/23 10:22 Respiratory Rate 18 05/03/23 10:51 Blood Pressure 131/76 05/03/23 11:22 Pulse Oximetry 94 05/03/23 10:22 Oxygen Delivery Me thod Room Air 05/03/23 10:22 MDM - Extremity (Nontraumatic) Medical Decision Making Partial amputation of the soft tissue of the tips of the fingers with dorsum on the index finger and actual tip of the third finger. Patient was given Ancef prophylactically. Multiple doses of morphine to control pain. His Tdap is up-to-date fingers were bandaged of contacted Dr. Alfaro he will see him in the office shortly after discharge. He will evaluate whether or not we can attempt to let this heal and feel the tissue defect healing by secondary intent or we will need revision of the tips of the fingers. Medical Records I reviewed the patient's medical records. Lab Data I reviewed the patient's lab results. Discharge Plan Discharge Patient Disposition: Home Clinical Impression: Traumatic amputation of tip of finger of left hand Condition: Stable Prescriptions: New cephalexin 750 mg capsule 750 mg PO BID 7 Days Qty: 14 0RF hydrocodone-acetaminophen 5-325 mg tablet 1 tab PO Q6H PRN (Reason: pain) Qty: 10 0RF No Action atorvastatin [Lipitor] 20 mg tablet 20 mg PO BEDTIME metformin 1,000 mg Tablet 1,000 mg PO BID hydrochlorothiazide 25 mg tablet 25 mg PO QAM albuterol sulfate [Ventolin HFA] 90 mcg/actuation HFA aerosol inhaler 2 puff INHALATION Q4H PRN (Reason: Shortness Of Breath) cyclobenzaprine 10 mg tablet 10 mg PO TID PRN (Reason: Muscle Spasm) glipizide 10 mg tablet 10 mg PO QAM Aspir-81 81 mg Tablet,Delayed Release (Dr/Ec) 81 mg PO QAM Pepcid 20 mg Tablet 20 mg PO QAM amlodipine 10 mg tablet 10 mg PO BEDTIME Ozempic 2 mg/dose (8 mg/3 mL) pen injector 2 mg SUBCUT Q7D Rx Instructions: on sat Flomax 0.4 mg capsule 0.4 mg PO BEDTIME loratadine 10 mg tablet 10 mg PO QAM Discharge Orders: Discharge ED (Routine); Ordered 05/03/23 Ordered By: Roque Calles Referrals: Mary Grace Corrales MD [Primary Care Provider] - Discharge Activity: Limit activity as instructed Patient Instructions: Opioid Safety, Pain Management Activity Restrictions/Additional Instructions: We will discharge you home with oral antibiotics and pain medications follow-up with Dr. Alfaro's office at 130 today he will review the films and examine your fingers and make recommendations. Coding Level of Care Code ED Elastic Attacher Coverstitch for Neema Hardwick
[2023-05-03] MEDS: LORazepam 2 mg Tablet PO (10:40)
[2023-05-03 10:51] VITALS: RESP 18
[2023-05-03 11:22] VITALS: BP 131/76
== END 2023-05-03 12:38 | disposition home or self-care (01) ==
PROVIDERS: Emergency Provider Family Medicine; PCP Internal Medicine
DX: S68.121A Partial traumatic metacarpophalangeal amputation of left index finger, initial encounter (principal); S68.123A Partial traumatic metacarpophalangeal amputation of left middle finger, initial encounter; Z79.82 Long term (current) use of aspirin; Z79.84 Long term (current) use of oral hypoglycemic drugs; I25.10 Atherosclerotic heart disease of native coronary artery without angina pectoris; E11.9 Type 2 diabetes mellitus without complications; E78.5 Hyperlipidemia, unspecified; I10 Essential (primary) hypertension; W27.0XXA Contact with workbench tool, initial encounter
CPT/HCPCS: 73130; 96365; 96375; 96376; 99214; 99284; A6446; J0690; J2270; J2405

== ENCOUNTER 2023-05-04 10:36 | Day surgery (SDC) | payer OTHER, MEDICARE, SELFPAY ==
[2023-05-04] VITALS (8 sets, daily range): BP systolic 122–133; BP diastolic 80–90; PULSE 82–92; RESP 16–18; TEMP 36.1–36.6; O2SAT 92–97; BMI 36.2
[2023-05-04 11:19] LABS: Glucose Point of Care 168 mg/dL (70-110)
[2023-05-04 11:19] LABS: Basophils # 0.1 10^3/uL (0.0-0.1); Basophils % 0.7 %; Eosinophils # 0.4 10^3/uL (0.0-0.8); Eosinophils % 4.6 %; Hematocrit 44.1 % (37-53); Lymphocytes # 1.9 10^3/uL (0.8-4.8); Lymphocytes % 24.7 %; Mean Corpuscular HGB Conc 34.7 g/dL (30-55); Mean Corpuscular Hemoglobin 29.7 pg (27-33); Mean Corpuscular Volume 85.6 fl (82-101); Mean Platelet Volume 10.7 fL (7.4-10.4); Monocytes # 0.7 10^3/uL (0.2-0.9); Monocytes % 8.6 %; Neutrophils # 4.69 10^3/uL (1.8-7.7); Nucleated Red Blood Cells % 0 %; Platelet Count 222 10^3/cmm (157-399); Red Blood Count 5.15 10^6/uL (3.85-5.65); Red Cell Distribution Width 13.9 % (12.1-15.1); White Blood Count 7.68 10^3/uL (3.29-11.43)
[2023-05-04] MEDS: acetaminophen 1,000 MG/100 ML PIGGYBACK 400 MG IV (11:22)
[2023-05-04] MEDS: ketorolac 30 mg/mL INJ IVP (11:25)
[2023-05-04] MEDS: scopolamine 1.5 Patch 1 PATCH TRANSDERMA (11:27)
[2023-05-04 11:36] LABS: Anion Gap 13.7 (5-19); Blood Urea Nitrogen 19 mg/dL (8-23); Calcium 9.8 mg/dL (8.5-10.5); Carbon Dioxide 32 mmol/L (22-29); Chloride 100 mmol/L (98-107); Glomerular Filtration Rate 84.4 mL/min (90-130); Glucose 185 mg/dL (65-115); Osmolality Calculated 301 mOsm/kg (285-295); Potassium 3.7 mmol/L (3.5-5.1); Sodium 142 mmol/L (136-145)
[2023-05-04] MEDS: sodium chloride 0.9% 1,000 ML 30 ML IV (11:45)
--- NOTE | 2023-05-04 13:26 | W.PM.OPSUD ---
Surgery/Procedure H&P Update DATE OF PROCEDURE: May 04, 2023 DATE H&P PERFORMED: 05/03/23 CHANGES TO PREVIOUS DOCUMENTATION: None. No change in HPI from office visit on 05/03/2023. Patient understands risk benefits complication alternatives with surgery plan to proceed with left index and middle finger wound exploration with irrigation debridement and possible revision amputation of the index and middle fingers. Patient understands and agrees with current plan. Questions answered. PREOP DIAGNOSIS: Open fracture of the 2nd and 3rd distal phalanx Traumatic amputation finger PRIMARY INDICATION FOR PROCEDURE: Open fracture distal phalanx of the index and middle finger traumatic amputation tablesaw PLANNED PROCEDURE: Operation Date: 05/04/23 12:35 Proposed Procedures p Left index and middle finger wound exploration, Irrigation and debridement, and possible revised amputation of distal phalange of index and middle finger. CPT 19284, 03700, S62.639B, S68.119A(Left) - Casey Angelina, DO s Debridement Upper Extremity(Left) - Casey Alfaro, s and possible revised amputation of distal phalange of index and middle finger(Left) - Casey Angelina, DO
--- NOTE | 2023-05-04 13:46 | P.ANESASSM_ITS ---
Pre-Anesthetic Assessment Height/Weight: Height 1.91 m Weight 131.542 kg Temp Pulse Resp BP Pulse Ox O2 Del Method 97.8 F 92 16 124/90 97 Room Air 05/04/23 11:36 05/04/23 11:36 05/04/23 11:36 05/04/23 11:36 05/04/23 11:36 05/04/23 11:15 Preop Diagnosis: Open fracture of the 2nd and 3rd distal phalanx Traumatic amputation finger Operation Date: 05/04/23 12:35 Proposed Procedures p Left index and middle finger wound exploration, Irrigation and debridement, and possible revised amputation of distal phalange of index and middle finger. CPT 73759, 34109, S62.639B, S68.119A(Left) - Casey Edmonson, DO s Debridement Upper Extremity(Left) - Casey Edmonson, DO s and possible revised amputation of distal phalange of index and middle finger(Left) - Casey Edmonson, DO Familial anesthetic complications: previous nerve block with SOB Was Beta Erika taken within 24 hours: N/A Last intake: Intake Last Liquid Date 05/04/23 Last Liquid Time 06:00 Last Solid Date 05/03/23 Last Solid Time 20:00 Social No alcohol and No tobacco Exam alert, oriented x 3, clear to auscultation bilaterally and regular rate & rhythm Airway Submandibular: within normal limits Cervical ROM: within normal limits Mallampati: Class II Dentition: full Pulmonary Asthma and Sleep Apnea CV/HEM Myocardial Infarction (stents 2000) Hepatic None reported GI Gastroesophageal Reflux Disease Metabolic Diabetes Mellitus and Morbid Obesity [facility] None reported Neuropsych None reported Anesthetic Plan ASA status: 3 Anesthesia: General Medications/Allergies Home Medications Medication Instructions Recorded Confirmed Last Taken Type albuterol sulfate 90 mcg/actuation 2 puff inhalation Q4H PRN 09/14/19 05/04/23 05/04/23 History aerosol inhaler (Ventolin HFA) Shortness Of Breath atorvastatin 20 mg tablet (Lipitor) 20 mg PO BEDTIME 09/14/19 05/03/23 05/03/23 History hydrochlorothiazide 25 mg tablet 25 mg PO QAM 09/14/19 05/04/23 05/03/23 History metformin 1,000 mg tablet 1,000 mg PO BID 09/14/19 05/04/23 05/03/23 History amlodipine 10 mg tablet 10 mg PO BEDTIME 05/03/23 05/04/23 05/04/23 History aspirin 81 mg tablet,delayed 81 mg PO QAM 05/03/23 05/04/23 05/03/23 History release cephalexin 750 mg capsule 750 mg PO BID 7 days #14 caps 05/03/23 05/04/23 05/04/23 Rx cyclobenzaprine 10 mg tablet 10 mg PO TID PRN Muscle Spasm 05/03/23 05/04/23 05/03/23 History famotidine 20 mg tablet (Pepcid) 20 mg PO QAM 05/03/23 05/04/23 05/04/23 History glipizide 10 mg tablet 10 mg PO QAM 05/03/23 05/04/23 05/03/23 History hydrocodone 5 mg-acetaminophen 325 1 tab PO Q6H PRN pain #10 tabs 05/03/23 05/04/23 05/03/23 Rx mg tablet loratadine 10 mg tablet 10 mg PO QAM 05/03/23 05/04/23 05/04/23 History semaglutide 2 mg/dose (8 mg/3 mL) 2 mg SUBCUT Q7D 05/03/23 05/04/23 04/29/23 History subcutaneous pen injector (Ozempic) tamsulosin 0.4 mg capsule (Flomax) 0.4 mg PO BEDTIME 05/03/23 05/04/23 05/04/23 History hydrocodone 5 mg-acetaminophen 325 1 tab PO Q6H PRN pain 5 days #20 05/04/23 Unknown Rx mg tablet tabs ondansetron 4 mg disintegrating 4 mg PO Q8H PRN nausea and 05/04/23 Unknown Rx tablet vomiting 3 days #9 tabs Allergies Allergy/AdvReac Type Severity Reaction Status Date / Time No Known Allergies Allergy Verified 05/04/23 10:49 Current Medications Generic Name Dose Route Start Last Admin Trade Name Freq PRN Reason Stop Dose Admin Sodium Chloride 1,000 mls @ 30 mls/hr 05/04/23 11:45 05/04/23 11:45 Sodium Chloride 0.9% IV 05/05/23 11:44 30 mls/hr .Q24H BELEN Administration PFSH Anesthesia Medical History Angioedema Asthma Coronary artery disease Diabetes mellitus Hyperlipidemia Hypertension Obesity Obstructive sleep apnea Surgical History History of appendectomy History of cholecystectomy History of coronary artery stent placement History of knee surgery Family History Mother , AT AGE 82 Cancer PANCREAS Father , AT AGE 63 Heart attack Other CAD (coronary artery disease) Diabetes Social History Smoking and tobacco status: never smoked Alcohol intake: never Marital status: Current occupational status: retired Data Anesthesia 05/04/23 10:10 05/04/23 10:10 Short CBC 05/04/23 Range/Units 10:10 WBC 7.68 (3.29-11.43) 10^3/uL Hgb 15.30 (11.27-16.99) g/dL Hct 44.1 (37-53) % MCV 85.6 (82-101) fl Plt Count 222 (157-399) 10^3/cmm Neut % (Auto) 61.0 % Neut # (Auto) 4.69 (1.8-7.7) 10^3/uL BMP 05/04/23 10:10 Sodium 142 Potassium 3.7 Chloride 100 Carbon Dioxide 32 H BUN 19 Creatinine 0.9 Glucose 185 H Calcium 9.8 Cardiac Studies: No Data to Display
[2023-05-04] MEDS: ceFAZolin 2,000 MG in sodium chloride 0.9% (plus) 50 ML 100 MG IV (13:52)
[2023-05-04] MEDS: lidocaine 2% INJ 20 mL INJECTION (14:18)
[2023-05-04] MEDS: ROPivacaine 0.5% SDV 30 mL 150 MG INJECTION (14:19)
[2023-05-04] MEDS: ceFAZolin 1,000 mg SDV 1000 MG IVP (14:20)
[2023-05-04] MEDS: neomycin-poly-bacitracin oint 28 gm 1 APPLIC TOPICAL (15:06)
--- NOTE | 2023-05-04 15:13 | P.OP_ITS ---
Operative Report Date of procedure: May 04, 2023 Pre-op diagnosis: Traumatic amputation left index finger and middle finger distal phalanx Post-op diagnosis: same Procedure done: Left middle finger irrigation and debridement with revision amputation and plan for healing by secondary intention Left index finger irrigation and debridement with revision amputation at the DIP joint with primary closure Surgeon: Casey Alfaro DO Construction Equipment Mechanic: Cordell Alfaro PA-C Estimated blood loss: 5 mL Total finger tourniquet time 46 minutes between both the middle and index finger IV fluids: 900 mL Complications: None Findings: See operative report narrative Condition: stable Disposition: same day Brief History: Patient is a 68-year-old gentleman who sustained traumatic tablesaw injury of the distal phalanx of the index and middle finger. He was seen in the emergency department referred to the outpatient office and on assessment recommended left middle and index finger irrigation debridement with possible revision amputations. Patient understands in the end of the procedure as well as the risk benefits complication alternatives with surgery and through shared decision-making patient elects proceed with surgical intervention. All questions answered. Procedure: patient seen eval in the preoperative holding area. Consent was reviewed and signed with patient. Correct extremity/digits were then marked. Patient seen evaluated by anesthesia once cleared for surgery patient was taken back to the operative suite. Patient was kept on hospital gurderry and an armboard was applied to the left upper extremity. Patient underwent anesthesia per the anesthesia department once properly anesthetized the left upper extremity had a nonsterile tourniquet applied to the left upper arm. Left upper extremity was then prepped and draped in standard orthopedic fashion. Patient received appropriate preoperative antibiotics. I subsequently utilized a finger turnicot for the left middle finger first. Once this was insufflated I then was able to thoroughly evaluate and remove the hematoma on top of the left middle finger. It was clearly evident there was a slight dorsal oblique resection of the distal fingertip. This went strictly through the nail and the residual nail of roughly half was left proximally. I made small slits in the eponychial fold and removed the nail plate and evaluated the germinal matrix which was intact with no evidence of laceration. It was evident there was some exposed bone at the level beyond of the soft tissue envelope. This appears this would likely heal well with secondary intention as result I utilized a rongeur to whittle back to the bone flush with the soft tissue level at the level of the residual sterile matrix and left over nail plate this completed my revision amputation of the bone and plan was for secondary intention. Once I was satisfied with this I then debrided the rest of the finger pulp that was remanent and subsequently irrigated and debrided the middle fingertip. A Xeroform gauze dressing was placed underneath the eponychial fold chromic sutures were placed on the skin incision sites and I subsequently placed triple antibiotic ointment at the fingertip and this was subsequently dressed with Xeroform 4 x 4's and Cee wrap the finger turnicot was removed and hemostasis was satisfactory. This completed work of the middle finger and plan will be to hear this by secondary intention. Attention was turned towards the left index finger the left index finger had a finger turnicot which was placed. I then thoroughly irrigated the fingertip and evaluated the extent of the injury. Patient was found to have complete comminution of the entire aspect of the distal phalanx with disruption of the extensor and flexor tendon insertion sites. Patient had completely degloved the entire aspect of the germinal matrix as well as no remanent of the sterile matrix or any soft tissue on top of the comminuted fracture fragments. Given the extent and loss of the entire sterile matrix and no soft tissue over the bone and significant comminution and loss of tendon insertion site it was determined this would be better suited with a revision amputation with plan for primary closure as there was a good amount of volar flap. I then utilized a rongeur to remove all the comminuted fragments of the distal phalanx as well as to remove any remnant of the germinal matrix with sharp scalpel excision. I then performed a disarticulation at the DIP joint and then utilized a rongeur to remove the cartilage as well as the condyles to have appropriate contouring. I then subsequently made sure that there was no remanent of any debris within the volar flap of the index finger I thoroughly irrigated this once a satisfied with my irrigation debridement and extent of revision amputation I then subsequently made small adjustments and performed a standard volar flap closure to complete the revision amputation left index finger with primary closure. Simple interrupted nylon sutures were used to appropriately contoured the finger revision amputation. Once The finger turnicot was removed hemostasis was satisfactory with brisk capillary refill. I then dressed the incision site with Xeroform 4 x 4's Cee wrap and then Curlex and an Kevon wrap. Patient was then awakened from anesthesia and taken to PACU in stable condition. Disposition: Patient taken to PACU in stable condition recovering well patient received appropriate discharge structure as well as pain medication postoperatively. Patient will follow-up in the orthopedic office in 2 weeks to complete his postoperative antibiotics that he been prescribed emergency department for infection prophylaxis. We will plan to get him into the OT hand therapy office for evaluation for dressing changes to begin finger edema wraps and control as well as to protectors. Patient and family understand agree with current plan. Questions answered.
--- NOTE | 2023-05-04 15:17 | PM.OP2 ---
Brief Operative Note Date of procedure: 05/04/23 Pre-op diagnosis: Open fracture of the second and third distal phalanx traumatic amp finger Post-op diagnosis: same Procedure Done: Left middle finger wound exploration and irrigation and debridement revision amputation with secondary intention healing Left index finger wound exploration irrigation debridement with revised amputation of distal phalange Surgeon: Casey Alfaro Estimated blood loss (mL): 5 Complications: none Post-op Plan: Keep dressing on and dry until seen by Ortho at 2-week follow-up Take pain medication as prescribed Take antinausea medication as needed Continue taking your previously prescribed antibiotic until complete May supplement with xtlb-dda-dishabe anti-inflammatories (make sure not to take more than 3000 mg of Tylenol in 1 day as your pain medication does have Tylenol in it) Follow-up in the orthopedic office in 2 weeks Contact the office for any questions or concerns Condition: stable Disposition: PACU Coding Level of Care Code Acute Code for Neema Hardwick
--- NOTE | 2023-05-04 15:22 | PM.PACU ---
PACU note Narrative: Patient is a 68-year-old male who just underwent a left middle and index finger wound exploration, irrigation and debridement with a revised amputation. Patient transferred to PACU in stable condition. Pain is well controlled. Dressing on hand is dry and in place. Patient's fingers are warm and well-perfused. Patient can wiggle fingers. Exam: awake Disposition: discharged
--- NOTE | 2023-05-04 16:20 | ANE.PACU2 ---
Inpatient post-anesthesia follow up: Airway intact: Yes Vital signs: Temperature 97.7 F Pulse Rate 82 Respiratory Rate 18 Blood Pressure 123/80 Pulse Oximetry 97 Oxygen Delivery Me thod Room Air Oxygen Flow Rate 6 Fraction of Inspir ed Oxygen Hydration adequate: Yes Nausea and vomiting: No Pain level: 1 Mental status: Baseline
== END 2023-05-04 16:23 | disposition home or self-care (01) ==
PROVIDERS: Anesthesiology; PCP Internal Medicine; Visit Provider Student in an Organized Health Care Education/Training Program
PROC: (CPT 26951; principal; 2023-05-04 12:25)
PROC: (CPT 26951; 2023-05-04 12:25)
PROC: (CPT 26951; 2023-05-04 12:25)
DX: S68.121A Partial traumatic metacarpophalangeal amputation of left index finger, initial encounter (principal); S68.123A Partial traumatic metacarpophalangeal amputation of left middle finger, initial encounter; W31.2XXA Contact with powered woodworking and forming machines, initial encounter; Z79.82 Long term (current) use of aspirin; I25.10 Atherosclerotic heart disease of native coronary artery without angina pectoris; E11.9 Type 2 diabetes mellitus without complications; E78.5 Hyperlipidemia, unspecified; I10 Essential (primary) hypertension; G47.33 Obstructive sleep apnea (adult) (pediatric); E66.9 Obesity, unspecified; Z68.36 Body mass index [BMI] 36.0-36.9, adult
CPT/HCPCS: 26951 ×2; 36415; 36416; 80048; 82962; 85025; J0131; J0330; J0690; J1885; J2704; J2795; J3010; J7030

== ENCOUNTER 2023-05-10 10:08 | Outpatient (RCR) | payer OTHER, MEDICARE, SELFPAY | END 2023-06-02 23:59 | disposition home or self-care (01) | LOC: SOT 10:08 | PROVIDERS: PCP Internal Medicine; Visit Provider Student in an Organized Health Care Education/Training Program | DX: S62.631D Displaced fracture of distal phalanx of left index finger, subsequent encounter for fracture with routine healing (principal); W31.2XXD Contact with powered woodworking and forming machines, subsequent encounter | CPT/HCPCS: 97110; 97140; 97530; 97760; L3925 ==

== ENCOUNTER → 2023-05-17 08:34 | Outpatient (BNVA) | payer OTHER, MEDICARE, SELFPAY | PROVIDERS: PCP Internal Medicine; Visit Provider Physician Assistant | DX: S68.121A Partial traumatic metacarpophalangeal amputation of left index finger, initial encounter; S68.123A Partial traumatic metacarpophalangeal amputation of left middle finger, initial encounter; W31.2XXA Contact with powered woodworking and forming machines, initial encounter | CPT/HCPCS: 73120; 99024 ==

== ENCOUNTER → 2023-05-25 08:51 | Outpatient (BNVA) | payer OTHER, MEDICARE, SELFPAY | PROVIDERS: PCP Internal Medicine; Visit Provider Physician Assistant | DX: Z98.890 Other specified postprocedural states; S62.631B Displaced fracture of distal phalanx of left index finger, initial encounter for open fracture; S68.113A Complete traumatic metacarpophalangeal amputation of left middle finger, initial encounter; X58.XXXA Exposure to other specified factors, initial encounter | CPT/HCPCS: 99024 ==

== ENCOUNTER → 2023-06-22 08:23 | Outpatient (BNVA) | payer OTHER, MEDICARE, SELFPAY | PROVIDERS: PCP Internal Medicine; Visit Provider Physician Assistant | DX: Z98.890 Other specified postprocedural states; X58.XXXA Exposure to other specified factors, initial encounter; S62.631B Displaced fracture of distal phalanx of left index finger, initial encounter for open fracture; S68.113A Complete traumatic metacarpophalangeal amputation of left middle finger, initial encounter | CPT/HCPCS: 99213 ==

== ENCOUNTER → 2023-09-11 08:06 | Outpatient (BNVA) | payer OTHER, MEDICARE, SELFPAY | PROVIDERS: PCP Internal Medicine; Visit Provider Physician Assistant | DX: Z98.890 Other specified postprocedural states; S68.113D Complete traumatic metacarpophalangeal amputation of left middle finger, subsequent encounter; X58.XXXD Exposure to other specified factors, subsequent encounter | CPT/HCPCS: 99213 ==

== ENCOUNTER 2024-07-23 14:59 | Outpatient (CLI) | payer MEDICARE, SELFPAY ==
--- NOTE | 2024-07-23 15:08 | XRR_ITS ---
PROCEDURE INFORMATION: Exam: XR Lumbosacral Spine Exam date and time: 07/23/2024 3:33 PM Age: 69 years old Clinical indication: Low back pain; Patient HX: Worsening lower back pain that radiates to right hip and down leg, no specific injury, x2-3 months; Additional info: Ddd, lumbosacral spine w/radiculopathy TECHNIQUE: Imaging protocol: Radiologic exam of the lumbosacral spine. Views: 6 or more views. Including flexion and extension views. COMPARISON: CT kidney stone [id number] 08/29/2022 8:04 AM FINDINGS: Bones/joints: Degenerative change of the visualized osseous structures. Multifocal disc space narrowing. Soft tissues: Unremarkable. Gastrointestinal tract: Prominent loop of air dilated large bowel centrally seen. Organs: Cholecystectomy clips. XR/XR lumbar spine 6V w f/e [id number] IMPRESSION: 1. Degenerative changes of the spine without acute osseous abnormality. 2. Prominent loop of air dilated large bowel, no overt evidence for obstruction.
== END 2024-07-23 15:00 | disposition home or self-care (01) ==
LOC: RAD 15:04
PROVIDERS: PCP Internal Medicine; Visit Provider Internal Medicine
DX: M51.17 Intervertebral disc disorders with radiculopathy, lumbosacral region (principal); M51.360 Other intervertebral disc degeneration, lumbar region with discogenic back pain only; M51.370 Other intervertebral disc degeneration, lumbosacral region with discogenic back pain only; Z90.49 Acquired absence of other specified parts of digestive tract
CPT/HCPCS: 72114

== ENCOUNTER 2024-09-14 16:48 | Emergency (ER) | payer MEDICARE, OTHER, SELFPAY ==
[2024-09-14] VITALS (7 sets, daily range): BP systolic 133–168; BP diastolic 83–90; PULSE 87–96; RESP 18; TEMP 36.7; O2SAT 92–96
[2024-09-14 16:59] LABS: Glucose Point of Care 204 mg/dL (70-110)
--- NOTE | 2024-09-14 17:04 | ECG_ITS ---
[facility] Z2 Test Date: 2024-09-14 Pat Name: Karan Mane Department: Room: Gender: Male Health Type Technician: : 1955 Requested By: Murtaza Hoffman Order Number: [id number] Schafer MD: Moustapha Deleon M.D. Measurements Intervals [place] Rate: 97 P: 48 [place]: 174 QRS: -12 QRSD: 95 T: 65 QT: 362 QTc: 461 Interpretive Statements SINUS RHYTHM NONSPECIFIC T-WAVE ABNORMALITY INTERPRETATION BASED ON A DEFAULT AGE OF 40 YEARS Compared to ECG 06/15/2022 14:35:11 No significant changes Electronically Signed On 09-16-2024 23:46:33 HEAD REFRIGERATING ENGINEER by Moustapha Deleon M.D. [email or web address]
--- NOTE | 2024-09-14 18:06 | ED_ITS ---
HPI - Recheck/Abnormal Lab/Rx 2 General: Chief Complaint: Recheck/Abnormal Lab/Rx Stated Complaint: low blood sugar Time Seen by Provider: 09/14/24 18:05 Source: patient Mode of arrival: ambulatory Limitations: no limitations History of Present Illness: 69yo male presents with family for evalu ation of dizziness, weakness, nausea, and labile blood sugar. Patient reports his Christopher glucose monitor was reading [address] to [place], so they stopped to get a protein shake and peanut butter crackers. States that it did not go above 60 despite drinking soda. Significant other reports that she did check his sugar using a fingerstick and it was in the 200s. Patient reports all of his symptoms started evening when he had his first low glucose reading. States his symptoms have persisted. Reports that he will have dizziness upon position changes that persists while he is active as well as blurry vision this morning. Patient states that he does have a persistent cough that is not new. Patient denies difficulty breathing, shortness of breath, chest pain, abdominal pain, vomiting, diarrhea, recent fall or injury, any other concerns at this time. Related Data Home Medications Medication Instructions Recorded Confirmed albuterol sulfate 90 mcg/actuation 2 puff inhalation Q4H PRN 09/14/19 09/11/23 aerosol inhaler (Ventolin HFA) Shortness Of Breath atorvastatin 20 mg tablet (Lipitor) 20 mg PO BEDTIME 09/14/19 09/11/23 hydrochlorothiazide 25 mg tablet 25 mg PO QAM 09/14/19 09/11/23 metformin 1,000 mg tablet 1,000 mg PO BID 09/14/19 09/11/23 amlodipine 10 mg tablet 10 mg PO BEDTIME 05/03/23 09/11/23 aspirin 81 mg tablet,delayed 81 mg PO QAM 05/03/23 09/11/23 release cyclobenzaprine 10 mg tablet 10 mg PO TID PRN Muscle Spasm 05/03/23 09/11/23 famotidine 20 mg tablet (Pepcid) 20 mg PO QAM 05/03/23 09/11/23 glipizide 10 mg tablet 10 mg PO QAM 05/03/23 09/11/23 loratadine 10 mg tablet 10 mg PO QAM 05/03/23 09/11/23 semaglutide 2 mg/dose (8 mg/3 mL) 2 mg SUBCUT Q7D 05/03/23 09/11/23 subcutaneous pen injector (Ozempic) tamsulosin 0.4 mg capsule (Flomax) 0.4 mg PO BEDTIME 05/03/23 09/11/23 Previous Rx's Medication Instructions Recorded hydrocodone 5 mg-acetaminophen 325 1 tab PO Q6H PRN pain #10 tabs 05/03/23 mg tablet meclizine 25 mg tablet 25 mg PO TID PRN dizziness #30 tabs 09/14/24 Allergies Allergy/AdvReac Type Severity Reaction Status Date / Time No Known Allergies Allergy Verified 09/14/24 17:02 Review of Systems 2 Const: Denies: fever(s) or chills Eyes: Reports: blurry vision ENMT: Denies: throat pain Card: Denies: chest pain Resp: Denies: dyspnea GI: Denies: abdominal pain, vomiting or diarrhea : Denies: difficulty urinating Musc: Denies: back pain Neuro: Denies: headache(s) PFSH ED 2 PFSH: Medical History Asthma Diabetes mellitus Hyperlipidemia Coronary artery disease Obstructive sleep apnea Angioedema Obesity Hypertension Surgical History History of knee surgery History of cholecystectomy History of appendectomy History of coronary artery stent placement Family History Mother , AT AGE 82 Cancer PANCREAS Father , AT AGE 63 Heart attack Other CAD (coronary artery disease) Diabetes Social History Smoking and tobacco/nicotine status: never used tobacco/nicotine Alcohol intake: never Marital status: Current occupational status: retired Physical Exam 2 Const: COMMON NORMALS: no acute distress, patient oriented x3, healthy appearing and alert GENERAL APPEARANCE: cooperative OTHER: Patient is sitting upright on stretcher no acute distress. He is able to give history with assistance of significant other. He is interactive with exam appropriately. Family is at bedside HENMT: COMMON NORMALS: normocephalic and TM's normal bilaterally HEAD & SCALP: normocephalic TYMPANIC MEMBRANE: TM's normal bilaterally Neck/C-Spine: COMMON NORMALS: full ROM Chest: CHEST: Yes Symmetrical chest wall rise Resp: COMMON NORMALS: normal respiratory effort and clear to auscultation bilaterally EFFORT & INSPECTION: Yes able to speak in complete sentences A USCULTATION: clear to auscultation bilaterally Cardio: COMMON NORMALS: regular rate and regular rhythm RATE: regular rate RHYTHM: regular rhythm Extremity: COMMON NORMALS: full ROM Neuro: COMMON NORMALS: patient oriented x3 SENSORIUM/ORIENTATION: Yes alert Psych: COMMON NORMALS: cooperative Course 2 ED course: 2024: Consulted Dr. Caballero, neurology. Discussed HPI, exam findings, CT head, and labs. Recommends CTA if there is a blockage, transfer if no blockage can either go home or be admitted to the hospitalist. Recommends beginning aspirin and medication for cholesterol. CTA ordered Vital Signs: Vital signs: Vital Signs Temperature 98.1 F 09/14/24 16:55 Pulse Rate 96 09/14/24 22:04 Respiratory Rate 18 09/14/24 20:30 Blood Pressure 133/89 09/14/24 22:04 Pulse Oximetry 95 09/14/24 22:04 Oxygen Delivery Me thod Room Air 09/14/24 21:30 MDM - Recheck/Abnormal Lab/Rx Medical Decision Making 69yo male here with family for evaluation of dizziness, weakness, nausea, and labile blood sugar. Patient reports his Christopher glucose monitor was reading 54 this morning [address] the [address] to [place], so they stopped to get a protein shake and peanut butter crackers. States that it did not go above 60 despite drinking soda. Significant other reports that she did check his sugar using a fingerstick and it was in the 200s. Patient reports all of his symptoms started evening when he had his first low glucose reading. States his symptoms have persisted. Reports that he will have dizziness upon position changes that persists while he is active as well as blurry vision this morning. Patient states that he does have a persistent cough that is not new. Patient denies difficulty breathing, shortness of breath, chest pain, abdominal pain, vomiting, diarrhea, recent fall or injury, any other concerns at this time. Patient is nontoxic in appearance. Vital signs are stable. Differential diagnoses include but are not limited to hypoglycemia, pneumonia, dehydration, electrolyte imbalance, CVA Glucose is noted to be 206, otherwise labs are grossly unremarkable. Given patient's double vision, weakness, and dizziness, proceeded with CT scan of the head which was grossly unremarkable. NIH scale of 2 which would be for a left arm pronator drift and reported decreased tactile sensation. Consulted Dr. Caballero with neurology who recommended proceeding with a CTA head and neck. If there is a blockage, patient will need to be transferred. If no blockage patient can either go home or be admitted to the hospitalist. Requested to ensure that patient is taking aspirin and on a cholesterol medication. Patient does take aspirin daily and is prescribed a atorvastatin which she has been taking. CTA head and neck with no acute abnormalities noted. Discussed these findings with patient and family. Patient did opt to go home and will follow-up with primary care in the next couple of days for recheck and likely further testing. Also discussed with patient and family following up with Dr. Caballero with neurology. Patient does feel confident that he would be able to get an appointment with primary care in the next few days. Recommend continuation of his aspirin and atorvastatin. Recommend patient return to the emergency department if any rapid worsening symptoms and as needed. Patient and family state understanding and have no further questions or concerns at this time. Medical Records I reviewed the patient's medical records. Lab Data I reviewed the patient's lab results. 09/14/24 18:00 09/14/24 18:00 Radiology Impressions Chest X-Ray 09/14/24 18:15 IMPRESSION: No acute findings. Head CT 09/14/24 19:32 IMPRESSION: No acute intracranial abnormality. Head/Neck CTA 09/14/24 20:27 IMPRESSION: No large vessel stenosis or occlusion. IMPRESSION: No stenosis or occlusion. REFERENCES: NASCET CRITERIA. The degree of stenosis in the cervical segment of the internal carotid artery is based on NASCET criteria. Normal is no stenosis. Mild is less than 50% stenosis. Moderate is 50-69% stenosis. Severe is 70% to 99% stenosis. Total occlusion is no detectable patent lumen. ADDENDUM: 09/14/24 [id number] COMMENT: THIS REPORT CONTAINS FINDINGS THAT MAY BE CRITICAL TO PATIENT CARE. The exam findings were verbally communicated by me to MURTAZA BANKS via telephone conference at 9:07 PM EMERGENCY MEDICINE PHYSICIAN on 09/14/2024. The findings were acknowledged and understood. Laboratory Results WBC 6.79 10^3/uL (3.29-11.43) 09/14/24 18:00 RBC 5.00 10^6/uL (3.85-5.65) 09/14/24 18:00 Hgb 14.70 g/dL (11.27-16.99) 09/14/24 18:00 Hct 43.1 % (37-53) 09/14/24 18:00 MCV 86.2 fl (82-101) 09/14/24 18:00 MCH 29.4 pg (27-33) 09/14/24 18:00 MCHC 34.1 g/dL (30-55) 09/14/24 18:00 RDW 13.6 % (12.1-15.1) 09/14/24 18:00 Plt Count 237 10^3/cmm (157-399) 09/14/24 18:00 MPV 9.9 fL (7.4-10.4) 09/14/24 18:00 Neut % (Auto) 53.2 % 09/14/24 18:00 Lymph % (Auto) 30.8 % 09/14/24 18:00 [place] % (Auto) 8.4 % 09/14/24 18:00 Eos % (Auto) 6.0 % 09/14/24 18:00 Baso % (Auto) 1.0 % 09/14/24 18:00 Neut # (Auto) 3.61 10^3/uL (1.8-7.7) 09/14/24 18:00 Lymph # (Auto) 2.1 10^3/uL (0.8-4.8) 09/14/24 18:00 [place] # (Auto) 0.6 10^3/uL (0.2-0.9) 09/14/24 18:00 Eos # (Auto) 0.4 10^3/uL (0.0-0.8) 09/14/24 18:00 Baso # (Auto) 0.1 10^3/uL (0.0-0.1) 09/14/24 18:00 Nucleated RBC % (auto) 0 % 09/14/24 18:00 Nucleated RBCs # 0.0 /100WBC 09/14/24 18:00 Sodium 139 mmol/L (136-145) 09/14/24 18:00 Potassium 3.5 mmol/L (3.5-5.1) 09/14/24 18:00 Chloride 101 mmol/L (98-107) 09/14/24 18:00 Carbon Dioxide 27 mmol/L (22-29) 09/14/24 18:00 Anion Gap 14.5 (5-19) 09/14/24 18:00 BUN 16 mg/dL (8-23) 09/14/24 18:00 Creatinine 0.8 mg/dL (0.7-1.2) 09/14/24 18:00 GFR Calculation 96.4 mL/min (90-130) 09/14/24 18:00 Glucose 206 mg/dL (65-115) H 09/14/24 18:00 POC Glucose 204 mg/dL (70-110) H 09/14/24 16:56 Calculated Osmolality 295 mOsm/kg (285-295) 09/14/24 18:00 Calcium 9.7 mg/dL (8.5-10.5) 09/14/24 18:00 Total Bilirubin 0.4 mg/dL (0.15-1.2) 09/14/24 18:00 AST 13 U/L (0-40) 09/14/24 18:00 ALT 26 U/L (0-41) 09/14/24 18:00 Alkaline Phosphatase 102 U/L (40-130) 09/14/24 18:00 NT-Pro-B Natriuret Pep < 36 pg/mL (0-125) 09/14/24 18:00 Total Protein 6.8 g/dL (6.6-8.7) 09/14/24 18:00 Albumin 4.0 g/dL (3.5-5.2) 09/14/24 18:00 Globulin 2.8 g/dL (1.3-4.6) 09/14/24 18:00 Urine Color Yellow (Yellow) 09/14/24 18:55 Urine Appearance Clear (CLEAR) 09/14/24 18:55 Urine pH 5.5 (5-7) 09/14/24 18:55 Ur Specific [place] 1.019 (1.005-1.030) 09/14/24 18:55 Urine Protein 1+ (Negative) A 09/14/24 18:55 Urine Glucose (UA) Trace (Normal) H 09/14/24 18:55 Urine Ketones Negative (Negative) 09/14/24 18:55 Urine Blood Negative (Negative) 09/14/24 18:55 Urine Nitrate Negative (Negative) 09/14/24 18:55 Urine Bilirubin Negative (Negative) 09/14/24 18:55 Urine Urobilinogen 1.0 mg/dL (Negative) 09/14/24 18:55 Ur Leukocyte Esterase Negative (Negative) 09/14/24 18:55 Urine RBC 0-2 /hpf (0-2) 09/14/24 18:55 Urine WBC 0-5 /hpf (0-5) 09/14/24 18:55 Ur Squamous Epith Cells 0-5 /hpf (0-5) 09/14/24 18:55 Amorphous Sediment Not Reportable 09/14/24 18:55 Urine Bacteria None seen /hpf (NONE) 09/14/24 18:55 Hyaline Casts 0-4 /lpf H 09/14/24 18:55 XR interpretation done by ED provider, pending radiology final review Discharge Plan Discharge Patient Disposition: Home Clinical Impression: Dizziness of unknown etiology, Blurry vision, bilateral Condition: Stable Prescriptions: New meclizine 25 mg tablet 25 mg PO TID PRN (Reason: dizziness) Qty: 30 0RF No Action atorvastatin [Lipitor] 20 mg tablet 20 mg PO BEDTIME metformin 1,000 mg Tablet 1,000 mg PO BID hydrochlorothiazide 25 mg tablet 25 mg PO QAM albuterol sulfate [Ventolin HFA] 90 mcg/actuation HFA aerosol inhaler 2 puff INHALATION Q4H PRN (Reason: Shortness Of Breath) cyclobenzaprine 10 mg tablet 10 mg PO TID PRN (Reason: Muscle Spasm) glipizide 10 mg tablet 10 mg PO QAM aspirin 81 mg Tablet,Delayed Release (Dr/Ec) 81 mg PO QAM famotidine [Pepcid] 20 mg Tablet 20 mg PO QAM amlodipine 10 mg tablet 10 mg PO BEDTIME Ozempic 2 mg/dose (8 mg/3 mL) pen injector 2 mg SUBCUT Q7D Rx Instructions: on sat tamsulosin [Flomax] 0.4 mg capsule 0.4 mg PO BEDTIME loratadine 10 mg tablet 10 mg PO QAM hydrocodone-acetaminophen 5-325 mg tablet 1 tab PO Q6H PRN (Reason: pain) Qty: 10 0RF Discharge Orders: Discharge ED (Routine); Ordered 09/14/24 Ordered By: Murtaza Banks Referrals: Mary Grace Corrales MD [Primary Care Provider] - Ross Caballero MD [Physician] - Discharge Diet: Usual diet Discharge Activity: Increase activity as tolerated Patient Instructions: Dizziness (ED), Stroke (DC) Activity Restrictions/Additional Instructions: No acute concerning abnormalities were noted on your labs today. Your glucose was noted to be 206. The CT scan of your head and CTA angiogram head and neck were unremarkable. While this is reassuring, you may still need to have an MRI for further evaluation of the possible stroke Continue with your aspirin and a atorvastatin Please follow-up with primary care in the next couple of days for a repeat evaluation and possible further testing You may also need to follow-up with Dr. Caballero with neurology Return to the emergency department if any rapid worsening symptoms and as needed Coding Level of Care Code ED [employer] Manager for Neema Hardwick
--- NOTE | 2024-09-14 18:15 | XRR_ITS ---
PROCEDURE INFORMATION: Exam: XR Chest Exam date and time: 09/14/2024 6:28 PM Age: 69 years old Clinical indication: Other: Dizziness; Prior surgery; Surgery date: 6+ months; Surgery type: Coronary stent TECHNIQUE: Imaging protocol: Radiologic exam of the chest. Views: 1 view. COMPARISON: CR XR chest 1V portable [id number] 06/15/2022 10:39 AM FINDINGS: Lungs: Unremarkable. No consolidation. Pleural spaces: Unremarkable. No pleural effusion. No pneumothorax. Heart/Mediastinum: Unremarkable. No cardiomegaly. Bones/joints: Unremarkable. XR/XR chest 1V portable [id number] IMPRESSION: No acute findings.
[2024-09-14 18:19] LABS: Basophils # 0.1 10^3/uL (0.0-0.1); Eosinophils # 0.4 10^3/uL (0.0-0.8); Hematocrit 43.1 % (37-53); Lymphocytes # 2.1 10^3/uL (0.8-4.8); Lymphocytes % 30.8 %; Mean Corpuscular HGB Conc 34.1 g/dL (30-55); Mean Corpuscular Hemoglobin 29.4 pg (27-33); Mean Corpuscular Volume 86.2 fl (82-101); Mean Platelet Volume 9.9 fL (7.4-10.4); Monocytes # 0.6 10^3/uL (0.2-0.9); Monocytes % 8.4 %; Neutrophils # 3.61 10^3/uL (1.8-7.7); Neutrophils % 53.2 %; Nucleated Red Blood Cells % 0 %; Platelet Count 237 10^3/cmm (157-399); Red Cell Distribution Width 13.6 % (12.1-15.1); White Blood Count 6.79 10^3/uL (3.29-11.43)
[2024-09-14 18:46] LABS: Alanine Aminotransferase 26 U/L (0-41); Alkaline Phosphatase 102 U/L (40-130); Anion Gap 14.5 (5-19); Aspartate Amino Transferase 13 U/L (0-40); Blood Urea Nitrogen 16 mg/dL (8-23); Calcium 9.7 mg/dL (8.5-10.5); Carbon Dioxide 27 mmol/L (22-29); Chloride 101 mmol/L (98-107); Creatinine Clr Calc Pharmacy 130.9397; Globulin 2.8 g/dL (1.3-4.6); Glomerular Filtration Rate 96.4 mL/min (90-130); Glucose 206 mg/dL (65-115); NT Pro B Type Natriuretic Pept < 36 pg/mL (0-125); Osmolality Calculated 295 mOsm/kg (285-295); Potassium 3.5 mmol/L (3.5-5.1); Sodium 139 mmol/L (136-145); Total Bilirubin 0.4 mg/dL (0.15-1.2); Total Protein 6.8 g/dL (6.6-8.7)
[2024-09-14 19:14] LABS: Bilirubin Urine Negative (Negative); Blood Urine Negative (Negative); Glucose Urine UA Trace (Normal); Ketones Urine Negative (Negative); Leukocyte Esterase Urine Negative (Negative); Nitrate Urine Negative (Negative); Protein Urine 1+ (Negative); Specific Gravity, Urine 1.019 (1.005-1.030); Urine Appearance Clear (CLEAR); Urine Color Yellow (Yellow); pH Urine 5.5 (5-7)
[2024-09-14 19:19] LABS: Add Urine Microscopic? YES; Bacteria Urine None Seen /hpf; Hyaline Casts Urine 0-4 /lpf; RBC Urine 0-2 /hpf (0-2); Squamous Epithelial Cell Urine 0-5 /hpf (0-5); WBC Urine 0-5 /hpf (0-5)
--- NOTE | 2024-09-14 19:32 | CTR_ITS ---
PROCEDURE INFORMATION: Exam: CT Head Without Contrast Exam date and time: 09/14/2024 7:56 PM Age: 69 years old Clinical indication: Dizziness and visual disturbance; Patient HX: C/O dizziness with diplopia; Additional info: Dizziness, diplopia TECHNIQUE: Imaging protocol: Computed tomography of the head without contrast. Radiation optimization: All CT scans at this facility use at least one of these dose optimization techniques: automated exposure control; mA and/or kV adjustment per patient size (includes targeted exams where dose is matched to clinical indication); or iterative reconstruction. COMPARISON: CT head wo con* [id number] 09/14/2019 8:02 PM RADIATION DOSE METRICS: Total DLP (mGy-cm): 1117.08 FINDINGS: Brain: Advanced periventricular white matter changes likely related to chronic ischemic small vessel disease. No intracranial mass, hemorrhage or recent infarct. Cerebral ventricles: No ventriculomegaly. Paranasal sinuses: Visualized sinuses are unremarkable. No fluid levels. Mastoid air cells: Visualized mastoid air cells are well aerated. Bones: Unremarkable. No acute fracture. Soft tissues: Unremarkable. CT/CT head wo con* [id number] IMPRESSION: No acute intracranial abnormality.
--- NOTE | 2024-09-14 20:27 | CTR_ITS ---
PROCEDURE INFORMATION: Exam: CTA Head With Contrast, Arteriography Exam date and time: 09/14/2024 8:43 PM Age: 69 years old Clinical indication: Dizziness and giddiness and visual disturbance; Patient HX: C/O dizziness with diplopia; Additional info: CVA workup TECHNIQUE: Imaging protocol: Computed tomographic angiography of the head with contrast. Exam focused on the arteries. 3D rendering (Not supervised by radiologist): MIP and/or 3D reconstructed images were created by the technologist. Radiation optimization: All CT scans at this facility use at least one of these dose optimization techniques: automated exposure control; mA and/or kV adjustment per patient size (includes targeted exams where dose is matched to clinical indication); or iterative reconstruction. Contrast material: OMNI 350; Contrast volume: 100 ml; Contrast route: INTRAVENOUS (IV); COMPARISON: CT head wo con* [id number] 09/14/2024 7:56 PM RADIATION DOSE METRICS: Total DLP (mGy-cm): 585.27 FINDINGS: ANTERIOR CIRCULATION: Right internal carotid artery: Intracranial segment is patent with no significant stenosis. No aneurysm. Right middle cerebral artery: No occlusion or significant stenosis. No aneurysm. Right anterior cerebral artery: No occlusion or significant stenosis. No aneurysm. Left internal carotid artery: Intracranial segment is patent with no significant stenosis. No aneurysm. Left middle cerebral artery: No occlusion or significant stenosis. No aneurysm. Left anterior cerebral artery: No occlusion or significant stenosis. No aneurysm. POSTERIOR CIRCULATION: Right vertebral artery: No occlusion or significant stenosis. No aneurysm. Left vertebral artery: No occlusion or significant stenosis. No aneurysm. Basilar artery: No occlusion or significant stenosis. No aneurysm. Right posterior cerebral artery: No occlusion or significant stenosis. No aneurysm. Left posterior cerebral artery: No occlusion or significant stenosis. No aneurysm. Brain: No definite mass, mass effect, or midline shift. Cerebral ventricles: No ventriculomegaly. Bones/joints: Unremarkable. No acute fracture. Soft tissues: Unremarkable. PROCEDURE INFORMATION: Exam: CTA Neck With Contrast Exam date and time: 09/14/2024 8:43 PM Age: 69 years old Clinical indication: Dizziness and giddiness and visual disturbance; Patient HX: C/O dizziness with diplopia; Additional info: CVA workup TECHNIQUE: Imaging protocol: Computed tomographic angiography of the neck with contrast. Exam focused on the cervical segments of the vasculature. 3D rendering (Not supervised by radiologist): MIP and/or 3D reconstructed images were created by the technologist. Radiation optimization: All CT scans at this facility use at least one of these dose optimization techniques: automated exposure control; mA and/or kV adjustment per patient size (includes targeted exams where dose is matched to clinical indication); or iterative reconstruction. Contrast material: OMNI 350; Contrast volume: 100 ml; Contrast route: INTRAVENOUS (IV); COMPARISON: CT head wo con* [id number] 09/14/2024 7:56 PM RADIATION DOSE METRICS: Total DLP (mGy-cm): 585.27 FINDINGS: Right common carotid artery: No stenosis. No dissection or occlusion. Right internal carotid artery: No stenosis of the extracranial segment. No dissection or occlusion. Right external carotid artery: No occlusion or stenosis of the origin. Left common carotid artery: No stenosis. No dissection or occlusion. Left internal carotid artery: No stenosis of the extracranial segment. No dissection or occlusion. Left external carotid artery: No occlusion or stenosis of the origin. Right vertebral artery: No stenosis. No dissection or occlusion. Left vertebral artery: No stenosis. No dissection or occlusion. Soft tissues: Normal. No significant soft tissue swelling. Bones/joints: No acute fracture. Multilevel degenerative changes involve the cervical spine. There is mottled appearance of the visualized skeleton which may be related to a metabolic process. CT/CT angio headneck* [id number] IMPRESSION: No large vessel stenosis or occlusion. IMPRESSION: No stenosis or occlusion. REFERENCES: NASCET CRITERIA. The degree of stenosis in the cervical segment of the internal carotid artery is based on NASCET criteria. Normal is no stenosis. Mild is less than 50% stenosis. Moderate is 50-69% stenosis. Severe is 70% to 99% stenosis. Total occlusion is no detectable patent lumen.
[2024-09-14] MEDS: iohexol 350 mg/mL 500 mL Btl (per mL) IV (20:45)
[2024-09-14] MEDS: meclizine 25 mg tablet 50 MG PO (21:54)
== END 2024-09-14 22:05 | disposition home or self-care (01) ==
PROVIDERS: Emergency Medicine; Emergency Provider Nurse Practitioner; PCP Internal Medicine
DX: R42 Dizziness and giddiness (principal); H53.8 Other visual disturbances; Z79.82 Long term (current) use of aspirin; E11.9 Type 2 diabetes mellitus without complications; E78.5 Hyperlipidemia, unspecified; I25.10 Atherosclerotic heart disease of native coronary artery without angina pectoris; I10 Essential (primary) hypertension
CPT/HCPCS: 36415; 36416; 70450; 70496; 70498; 71045; 80053; 81001; 82962; 83880; 85025; 93005; 99285; J8597

== ENCOUNTER 2024-09-23 06:58 | Outpatient (CLI) | payer MEDICARE, OTHER, SELFPAY ==
--- NOTE | 2024-09-23 07:06 | MR_ITS ---
WS: [id number] MRI HEAD WITHOUT CONTRAST TECHNIQUE: Sagittal T1, T2 axial, T2 axial FLAIR, axial and coronal T1 images, axial susceptibility w eighted imaging, axial diffusion weighted images, and coronal T2 images were obtained. CLINICAL INFORMATION: [id number] COMPARISON: CT 09/14/2024 FINDINGS: No evidence of restricted diffusion to suggest acute ischemia. Ventricular system and basal cisterns are patent. Mild small vessel changes. Mild parenchymal volume loss. Normal posterior fossa. Normal v ascular flow voids at the skull base. No extra-axial fluid collections. No evidence of mass or mass e ffect. Mild mucosal thickening in the paranasal sinuses. Mastoid air cells are well aerated. Normal posterior nasopharynx. No hemosiderin on the susceptibly weighted images. Normal optic chiasm and pituitary infundibulum. Temporal lobes and hippocampal formations are normal in appearance. No he mosiderin on susceptibility-weighted images. MR/MR head wo con* [id number] IMPRESSION: 1. No evidence of restricted diffusion to suggest acute ischemia. 2. Mild small vessel changes with mild parenchymal volume loss. 3. No hemosiderin on susceptibility-weighted images. 4. No acute intracranial findings.
== END 2024-09-23 06:59 | disposition home or self-care (01) ==
LOC: RAD 06:59
PROVIDERS: PCP Internal Medicine; Visit Provider Internal Medicine
DX: R42 Dizziness and giddiness (principal); H53.8 Other visual disturbances; R93.89 Abnormal findings on diagnostic imaging of other specified body structures
CPT/HCPCS: 70551

== ENCOUNTER → 2025-08-18 07:58 | Outpatient (BNVA) | payer MEDICARE, OTHER, SELFPAY | PROVIDERS: PCP Internal Medicine; Visit Provider Dermatology | DX: L21.8 Other seborrheic dermatitis (principal); L57.8 Other skin changes due to chronic exposure to nonionizing radiation; D48.5 Neoplasm of uncertain behavior of skin; L57.0 Actinic keratosis | CPT/HCPCS: 11102; 17000; 99203 ==